=== PATIENT | male | born 1935 | race Caucasian/White ===

== ENCOUNTER 2017-03-22 13:20 | Emergency (ER) | payer MEDICARE | END 2017-03-22 15:00 | disposition home or self-care (01) | LOC: ERS 13:20 | DX: J01.90 Acute sinusitis, unspecified (principal); J30.9 Allergic rhinitis, unspecified; I10 Essential (primary) hypertension; D64.9 Anemia, unspecified; K21.9 Gastro-esophageal reflux disease without esophagitis; Z79.899 Other long term (current) drug therapy | CPT/HCPCS: 99283 ==

== ENCOUNTER 2017-05-01 01:02 | Emergency (ER) | payer MEDICARE ==
[2017-05-01 01:51] LABS: Mean Corpuscular HGB CONC 31.9 g/dL (32.0-36.0); Mean Corpuscular Hemoglobin 28.8 pg (27.0-31.0); Mean Corpuscular Volume 90.2 fl (80.0-94.0); Mean Platelet Volume 6.2 fL (7.4-10.4); Platelet Count 159 thou/uL (130-400); RBC Distribution Width 17.9 % (11.5-14.5); Red Blood Cell (RBC) Count 4.85 mill/uL (4.70-6.10); White Blood Cell (WBC) Count 5.7 thou/uL (4.8-10.8)
[2017-05-01 01:54] LABS: Prothrombin Time 13.2 SEC (12.0-14.7)
[2017-05-01 01:55] LABS: PTT 30.1 SEC (22.9-36.1)
[2017-05-01 02:05] LABS: #Eosinphils 0.1 thou/uL (0.0-0.7); #Lymphocytes 0.8 thou/uL (1.20-3.40); #Monocytes 0.5 thou/uL (0.11-0.59); #Neutrophils 4.3 thou/uL (1.40-6.50); %Basophils 0.7 % (0.0-1.0); %Eosinophils 2.6 % (0.0-10.0); %Lymphocytes 13.7 % (21.0-51.0); %Monocytes 8.4 % (0.0-10.0); %Neutrophils 74.7 % (42.0-75.0)
[2017-05-01 02:09] LABS: ALT (SGPT) 13 U/L (8-55); AST (SGOT) 16 U/L (5-34); Albumin 3.5 g/dL (3.4-4.8); Alkaline Phosphatase 77 U/L (40-150); Anion Gap 9 mmol/L (10-20); BUN (Urea Nitrogen) 28 mg/dL (8.4-25.7); Bilirubin, Total 0.4 mg/dL (0.2-1.2); CK (CPK) 82 U/L (30-200); Calc. Creatinine Clearance 0 mL/min (70-130); Calcium 9.3 mg/dL (7.8-10.44); Carbon Dioxide 31 mmol/L (23-31); Chloride 106 mmol/L (98-107); Estimated GFR-MDRD 80; Globulin 2.5 g/dL (2.4-3.5); Glucose 109 mg/dL (83-110); Sodium 142 mmol/L (136-145)
[2017-05-01 02:13] LABS: CKMB 3.2 ng/mL (0-6.6)
[2017-05-01 05:21] LABS: Troponin I 0.021 ng/mL (< 0.028)
--- NOTE | 2017-05-01 08:16 | RAD ---
CHEST PA AND LATERAL: HISTORY: An 81-year-old male with chest pain and palpitations. Past medical history of a heart murmur. COMPARISON: 11/01/16. FINDINGS: Heart size is normal. The lungs are clear. No pneumonia, edema, or pleural effusion or other acute process. IMPRESSION: Atherosclerosis of the aorta. No acute intrathoracic disease. POS: [facility]
== END 2017-05-01 05:45 | disposition home or self-care (01) ==
LOC: ERS 01:02
DX: R00.2 Palpitations (principal); I10 Essential (primary) hypertension; K21.9 Gastro-esophageal reflux disease without esophagitis
CPT/HCPCS: 36415; 71046; 80053; 82550; 82553; 83880; 84484; 85025; 85610; 85730; 93005

== ENCOUNTER 2017-07-07 17:35 | Emergency (ER) | payer MEDICARE ==
[2017-07-07 18:15] LABS: #Basophils 0.1 thou/uL (0.0-0.2); #Eosinphils 0.2 thou/uL (0.0-0.7); #Lymphocytes 0.7 thou/uL (1.20-3.40); #Monocytes 0.5 thou/uL (0.11-0.59); #Neutrophils 4.4 thou/uL (1.40-6.50); %Basophils 1.5 % (0.0-1.0); %Eosinophils 3.3 % (0.0-10.0); %Lymphocytes 12.2 % (21.0-51.0); %Monocytes 8.6 % (0.0-10.0); %Neutrophils 74.4 % (42.0-75.0); Hemoglobin 12.1 g/dL (14.0-18.0); Mean Corpuscular HGB CONC 32.6 g/dL (32.0-36.0); Mean Corpuscular Hemoglobin 28.7 pg (27.0-31.0); Mean Corpuscular Volume 88.2 fl (80.0-94.0); Mean Platelet Volume 7.9 fL (7.4-10.4); Platelet Count 177 thou/uL (130-400); RBC Distribution Width 13.3 % (11.5-14.5); Red Blood Cell (RBC) Count 4.21 mill/uL (4.70-6.10); White Blood Cell (WBC) Count 5.9 thou/uL (4.8-10.8)
[2017-07-07 18:21] LABS: Prothrombin Time 12.9 SEC (12.0-14.7)
[2017-07-07 18:30] LABS: Albumin 3.2 g/dL (3.4-4.8); Anion Gap 10 mmol/L (10-20); BUN (Urea Nitrogen) 26 mg/dL (8.4-25.7); Bilirubin, Total 0.4 mg/dL (0.2-1.2); Calc. Creatinine Clearance 0 mL/min (70-130); Calcium 8.7 mg/dL (7.8-10.44); Carbon Dioxide 29 mmol/L (23-31); Chloride 108 mmol/L (98-107); Estimated GFR-MDRD 57; Globulin 2.5 g/dL (2.4-3.5); Glucose 103 mg/dL (83-110); Potassium 3.9 mmol/L (3.5-5.1); Protein, Total 5.7 g/dL (5.8-8.1); Sodium 143 mmol/L (136-145)
[2017-07-07 18:31] LABS: ALT (SGPT) 10 U/L (8-55); AST (SGOT) 16 U/L (5-34); Alkaline Phosphatase 68 U/L (40-150); Magnesium 2.1 mg/dL (1.6-2.6)
[2017-07-07] MEDS ORDERED: Mag-Al Plus 1200 MG/1200 MG/120 MG/30 ML UDCUP ONE (18:33)
[2017-07-07] MEDS ORDERED: Lidocaine Viscous Sol 2% 15 ml UD Cup ONE (18:33)
[2017-07-07 18:34] LABS: CKMB 2.7 ng/mL (0-6.6); Troponin I 0.016 ng/mL (< 0.028)
--- NOTE | 2017-07-07 19:12 | RAD ---
FRONTAL VIEW CHEST: 07/07/17 COMPARISON: 05/01/17 INDICATION: Chest pain, indigestion. FINDINGS: No evidence of consolidation, effusion or pneumothorax. No free air beneath the hemidiaphragms. The c ardiac silhouette is accentuated by portable technique, stable in size. No additional significant interval change. IMPRESSION: No focal consolidation. POS: [facility]
[2017-07-07 20:10] LABS: Bilirubin Negative (Negative); Blood, Urine Negative (Negative); Clarity Clear (Clear); Glucose, Urine (Dipstick) Negative (Negative); Leukocyte Negative (Negative); Nitrite Negative (Negative); Protein, Urine (Dipstick) Negative (Neg-Trace); Specific Gravity, Urine 1.015 (1.005-1.030); Urobilinogen 0.2 mg/dL (0.2-1.0)
--- NOTE | 2017-07-07 21:21 | CT ---
CT OF ABDOMEN AND PELVIS WITH CONTRAST 07/07/17 Reference made to 09/06/16. CLINICAL HISTORY: Abdominal pain, cramping, reflux. FINDINGS: There is granulomatous calcification as well as probable mild volume loss and/or component of mild fi brosis seen at the lung bases. Prior cholecystectomy. No focal hepatic or splenic lesion. There is ag e related parenchymal atrophy of the pancreas. Small hypodensity is seen at the anterior right kidney , grossly stable. There is also stable exophytic density at the lower pole right kidney. No hydrone phrosis of either kidney. Punctate hypodensities of the left kidney are too small to further characte rize, grossly stable. No adrenal mass. Bowel is not reliably assessed without enteric contrast. no pn eumoperitoneum or portal venous gas seen. There is marked enlargement of the prostate gland with inte rnal calcification with transverse diameter of 6 cm. This does abut the urinary bladder base . Scatte red osseous degenerative changes are present. There is stable patchy sclerosis of the proximal right femur. Punctate sclerosis at the left pubic body also stable. IMPRESSION: 1. Limited evaluation of the bowel without enteric contrast. 2. Enlarged prostate gland abutting the urinary bladder base. Correlate with physical exam and P SA values to exclude underlying malignancy. 3. Prior cholecystectomy. POS: [facility]
== END 2017-07-07 21:05 | disposition home or self-care (01) ==
LOC: SCSER 17:35
DX: R10.13 Epigastric pain (principal); I10 Essential (primary) hypertension; K21.9 Gastro-esophageal reflux disease without esophagitis; D64.9 Anemia, unspecified; M48.00 Spinal stenosis, site unspecified; Z79.899 Other long term (current) drug therapy
CPT/HCPCS: 36415; 71045; 74177; 80053; 81003; 82553; 83605; 83690; 83735; 84484; 85025; 85610; 93005

== ENCOUNTER 2017-08-09 20:14 | Emergency (ER) | payer MEDICARE ==
[2017-08-09] MEDS ORDERED: methylPREDNISolone Acetate 40 mg/ml Vial ONE ×2 (20:51→20:52)
== END 2017-08-09 21:23 | disposition home or self-care (01) ==
LOC: SCSER 20:14
DX: J32.9 Chronic sinusitis, unspecified (principal); Z85.828 Personal history of other malignant neoplasm of skin; I10 Essential (primary) hypertension; K21.9 Gastro-esophageal reflux disease without esophagitis
CPT/HCPCS: 96372; J1030; J2920

== ENCOUNTER 2017-09-17 06:00 | Emergency (ER) | payer MEDICARE ==
[2017-09-17 06:29] LABS: #Eosinphils 0.1 thou/uL (0.0-0.7); #Lymphocytes 0.6 thou/uL (1.20-3.40); #Monocytes 0.4 thou/uL (0.11-0.59); #Neutrophils 3.1 thou/uL (1.40-6.50); %Basophils 0.9 % (0.0-1.0); %Eosinophils 2.5 % (0.0-10.0); %Lymphocytes 14.9 % (21.0-51.0); %Monocytes 9.2 % (0.0-10.0); %Neutrophils 72.5 % (42.0-75.0); Hemoglobin 12.2 g/dL (14.0-18.0); Mean Corpuscular HGB CONC 31.4 g/dL (32.0-36.0); Mean Corpuscular Hemoglobin 27.7 pg (27.0-31.0); Mean Corpuscular Volume 88.2 fL (78.0-98.0); Mean Platelet Volume 7.7 fL (7.4-10.4); Platelet Count 174 thou/uL (130-400); RBC Distribution Width 12.5 % (11.5-14.5); Red Blood Cell (RBC) Count 4.42 mill/uL (4.70-6.10); White Blood Cell (WBC) Count 4.3 thou/uL (4.8-10.8)
[2017-09-17 06:52] LABS: ALT (SGPT) 10 U/L (8-55); AST (SGOT) 16 U/L (5-34); Albumin 3.4 g/dL (3.4-4.8); Alkaline Phosphatase 79 U/L (40-150); Anion Gap 11 mmol/L (10-20); BUN (Urea Nitrogen) 25 mg/dL (8.4-25.7); Bilirubin, Total 0.4 mg/dL (0.2-1.2); Calc. Creatinine Clearance 0 mL/min (70-130); Calcium 8.9 mg/dL (7.8-10.44); Carbon Dioxide 28 mmol/L (23-31); Chloride 107 mmol/L (98-107); Estimated GFR-MDRD 67; Globulin 2.7 g/dL (2.4-3.5); Glucose 104 mg/dL (83-110); Potassium 3.9 mmol/L (3.5-5.1); Protein, Total 6.1 g/dL (5.8-8.1); Sodium 142 mmol/L (136-145)
[2017-09-17 07:07] LABS: CKMB 2.4 ng/mL (0-6.6); Troponin I 0.012 ng/mL (< 0.028)
--- NOTE | 2017-09-17 07:47 | RAD ---
TWO VIEWS OF THE CHEST: COMPARISON: 05/01/17. HISTORY: Shortness of breath and leg edema. FINDINGS: Two views of the chest show normal sized cardiomediastinal silhouette. There is no evidence of consol idation, mass, or pleural effusion. The bones are unremarkable. IMPRESSION: No evidence of acute cardiopulmonary disease. POS: [facility]
[2017-09-17] MEDS ORDERED: Albuterol Sulfate 2.5 mg/3 ml Neb ONE (08:15)
[2017-09-17] MEDS ORDERED: Furosemide 20 MG/2 ML VIAL ONE ×2 (08:43→10:13)
--- NOTE | 2017-09-17 11:24 | CT ---
CT PULONARY ANGIOGRAM WITH IV CONTRAST AND 3D POSTPROCESSING: HISTORY: Cough, leg swelling, difficulty taking a deep breath. FINDINGS: Opacification of the thoracic aorta is better than that of the pulmonary arterial vasculature which d [facility] attention values of 143 Hounsfield units. No filling defects are seen in the central pul monary arteries. Peripheral pulmonary arteries cannot be satisfactorily evaluated on this study and, thus, peripheral pulmonary embolism cannot be excluded on this exam. There are vascular calcificati ons without evidence of aneurysmal dilatation of the thoracic aorta. No evidence of intimal flap is seen to suggest dissection. No pleural or pericardial effusions are identified. There is scarring i n the lung apices. There is a stable 4 mm parenchymal nodule in the right upper lobe since 06/26/14. There are calcified granulomas noted in the right lung base. There are degenerative changes in the spine. 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 Upper abdominal tomog sia demonstrate changes of cholecystectomy. IMPRESSION: No CT evidence of central pulmonary embolism. POS: [facility]
== END 2017-09-17 10:22 ==
LOC: ERS 06:00
DX: I11.0 Hypertensive heart disease with heart failure (principal); I50.9 Heart failure, unspecified; K21.9 Gastro-esophageal reflux disease without esophagitis; D64.9 Anemia, unspecified; M48.00 Spinal stenosis, site unspecified; Z79.899 Other long term (current) drug therapy
CPT/HCPCS: 36415; 71046; 71275; 80053; 82553; 83880; 84484; 85025; 93005; 94640; 96374; 96376; J1940; J7611

== ENCOUNTER 2017-10-06 22:51 | Emergency (ER) | payer MEDICARE ==
[2017-10-06] MEDS ORDERED: Lidocaine Viscous Sol 2% 15 ml UD Cup ONE (23:30)
[2017-10-06] MEDS ORDERED: Mag-Al Plus 1200 MG/1200 MG/120 MG/30 ML UDCUP ONE (23:30)
== END 2017-10-06 23:45 | disposition home or self-care (01) ==
LOC: SCSER 22:51
DX: K30 Functional dyspepsia (principal); I10 Essential (primary) hypertension; K21.9 Gastro-esophageal reflux disease without esophagitis; D64.9 Anemia, unspecified; H40.9 Unspecified glaucoma; Z79.899 Other long term (current) drug therapy
CPT/HCPCS: 99283

== ENCOUNTER 2017-10-23 19:25 | Emergency (ER) | payer MEDICARE ==
[2017-10-23] MEDS ORDERED: Lidocaine Viscous Sol 2% 15 ml UD Cup ONE (19:43)
[2017-10-23] MEDS ORDERED: Furosemide 20 MG/2 ML VIAL ONE (19:43)
[2017-10-23] MEDS ORDERED: Nitroglycerin 2% Ointment 1 INCH/1 GM Packet ONE (19:43)
[2017-10-23] MEDS ORDERED: Mag-Al Plus 1200 MG/1200 MG/120 MG/30 ML UDCUP ONE (19:43)
[2017-10-23 20:09] LABS: #Basophils 0.1 thou/uL (0.0-0.2); #Eosinphils 0.2 thou/uL (0.0-0.7); #Lymphocytes 0.8 thou/uL (1.20-3.40); #Monocytes 0.5 thou/uL (0.11-0.59); #Neutrophils 4.5 thou/uL (1.40-6.50); %Basophils 1.2 % (0.0-1.0); %Eosinophils 2.5 % (0.0-10.0); %Lymphocytes 13.5 % (21.0-51.0); %Monocytes 8.6 % (0.0-10.0); %Neutrophils 74.1 % (42.0-75.0); ALT (SGPT) 10 U/L (8-55); AST (SGOT) 16 U/L (5-34); Albumin 3.5 g/dL (3.4-4.8); Alkaline Phosphatase 75 U/L (40-150); Anion Gap 11 mmol/L (10-20); BUN (Urea Nitrogen) 27 mg/dL (8.4-25.7); Bilirubin, Total 0.5 mg/dL (0.2-1.2); Calc. Creatinine Clearance 0 mL/min (70-130); Carbon Dioxide 28 mmol/L (23-31); Chloride 108 mmol/L (98-107); Estimated GFR-MDRD 54; Globulin 2.5 g/dL (2.4-3.5); Glucose 99 mg/dL (83-110); Hemoglobin 11.7 g/dL (14.0-18.0); Mean Corpuscular HGB CONC 33.1 g/dL (32.0-36.0); Mean Corpuscular Hemoglobin 26.8 pg (27.0-31.0); Mean Corpuscular Volume 80.7 fL (78.0-98.0); Mean Platelet Volume 7.1 fL (7.4-10.4); Platelet Count 172 thou/uL (130-400); RBC Distribution Width 12.9 % (11.5-14.5); Red Blood Cell (RBC) Count 4.36 mill/uL (4.70-6.10); Sodium 143 mmol/L (136-145); White Blood Cell (WBC) Count 6.1 thou/uL (4.8-10.8)
[2017-10-23 20:10] LABS: Troponin I 0.022 ng/mL (< 0.028)
--- NOTE | 2017-10-23 20:14 | RAD ---
CHEST TWO VIEWS: 10/23/17 HISTORY: Shortness of breath, edema in lower extremities. COMPARISON: 09/17/17 exam. Heart size and mediastinum within normal limits. The lungs are clear of infiltrates. No signs of fail ure. IMPRESSION: No active intrathoracic disease. POS: [facility]
== END 2017-10-23 20:25 | disposition home or self-care (01) ==
LOC: SCSER 19:25
DX: I11.0 Hypertensive heart disease with heart failure (principal); I50.9 Heart failure, unspecified; K21.9 Gastro-esophageal reflux disease without esophagitis; K30 Functional dyspepsia; D64.9 Anemia, unspecified; Z79.899 Other long term (current) drug therapy
CPT/HCPCS: 71046; 80053; 83880; 84484; 85025; 93005; 96374; J1940

== ENCOUNTER 2018-07-17 15:46 | Emergency (ER) | payer MEDICARE ==
[2018-07-17 16:34] LABS: Hemoglobin 10.2 g/dL (14.0-18.0); Mean Corpuscular Hemoglobin 22.1 pg (27.0-31.0); Mean Corpuscular Volume 76.1 fL (78.0-98.0); Mean Platelet Volume 7.1 fL (7.4-10.4); Platelet Count 196 thou/uL (130-400); White Blood Cell (WBC) Count 5.7 thou/uL (4.8-10.8)
--- NOTE | 2018-07-17 16:38 | RAD ---
AP VIEW CHEST: 07/17/18 HISTORY: Chest pain. AP view chest is obtained on 07/17/18. Comparison made to a previous exam from 12/01/17. AP view chest demonstrates the lungs to be well aerated. No evidence of active intrathoracic disease seen. No evidence of effusions, pneumonia or pneumothorax seen. IMPRESSION: Unremarkable AP view chest. POS: [facility]
[2018-07-17 16:43] LABS: #Basophils 0.1 thou/uL (0.0-0.2); #Eosinphils 0.1 thou/uL (0.0-0.7); #Lymphocytes 0.8 thou/uL (1.20-3.40); #Monocytes 0.5 thou/uL (0.11-0.59); #Neutrophils 4.2 thou/uL (1.40-6.50); %Basophils 1.4 % (0.0-1.0); %Eosinophils 1.8 % (0.0-10.0); %Lymphocytes 13.9 % (21.0-51.0); %Monocytes 9.5 % (0.0-10.0); %Neutrophils 73.4 % (42.0-75.0); Anisocytosis SLIGHT = 6-15 cells (100X) (0-5/hpf); Hypochromia SLIGHT = 6-15 cells (100X) (0-5/hpf); MDiff Complete? YES; Microcytosis SLIGHT = 6-15 cells (100X) (0-5/hpf); Ovalocytes SLIGHT = 2-5 cells (100X) (0-1/hpf); Platelet Morphology Comment Appears Adequate; Polychromasia SLIGHT = 2-3 cells (100X) (0-2/hpf)
[2018-07-17 16:49] LABS: ALT (SGPT) 9 U/L (8-55); AST (SGOT) 15 U/L (5-34); Albumin 3.4 g/dL (3.4-4.8); Alkaline Phosphatase 80 U/L (40-150); Anion Gap 11 mmol/L (10-20); BUN (Urea Nitrogen) 17 mg/dL (8.4-25.7); Bilirubin, Total 0.2 mg/dL (0.2-1.2); CK (CPK) 87 U/L (30-200); Calc. Creatinine Clearance 0 mL/min (70-130); Calcium 8.7 mg/dL (7.8-10.44); Carbon Dioxide 25 mmol/L (23-31); Chloride 110 mmol/L (98-107); Estimated GFR-MDRD 66; Globulin 2.5 g/dL (2.4-3.5); Glucose 112 mg/dL (83-110); Lipase 41 U/L (8-78); Potassium 3.9 mmol/L (3.5-5.1); Protein, Total 5.9 g/dL (5.8-8.1); Sodium 142 mmol/L (136-145)
[2018-07-17] MEDS ORDERED: Aspirin Chewable 81 MG TAB ONE (17:39)
[2018-07-17] MEDS ORDERED: Lidocaine Viscous Sol 2% 15 ml UD Cup ONE (17:39)
[2018-07-17] MEDS ORDERED: Mag-Al Plus 1200 MG/1200 MG/120 MG/30 ML UDCUP ONE (17:39)
== END 2018-07-17 17:34 | disposition left against medical advice (07) ==
LOC: SCSER 15:46
DX: R07.9 Chest pain, unspecified (principal); I10 Essential (primary) hypertension; K21.9 Gastro-esophageal reflux disease without esophagitis; D64.9 Anemia, unspecified
CPT/HCPCS: 71045; 80053; 82550; 83690; 84484; 85025; 93005

== ENCOUNTER 2018-12-19 21:19 | Observation (INO) | payer MEDICARE ==
[~2018-12-19 21:19] MED LIST: ISOVUE-370 76%-LOCM 1 ML ONE
[2018-12-19 21:50] LABS: #Eosinphils 0.1 thou/uL (0.0-0.7); #Lymphocytes 0.9 thou/uL (1.20-3.40); #Monocytes 0.6 thou/uL (0.11-0.59); #Neutrophils 4.2 thou/uL (1.40-6.50); %Basophils 0.6 % (0.0-1.0); %Lymphocytes 15.7 % (21.0-51.0); %Monocytes 10.1 % (0.0-10.0); %Neutrophils 71.6 % (42.0-75.0); Hemoglobin 11.4 g/dL (14.0-18.0); Mean Corpuscular Hemoglobin 23.3 pg (27.0-31.0); Mean Corpuscular Volume 75.1 fL (78.0-98.0); Mean Platelet Volume 9.4 fL (7.4-10.4); Platelet Count 204 thou/uL (130-400); RBC Distribution Width 15.8 % (11.5-14.5); White Blood Cell (WBC) Count 5.8 thou/uL (4.8-10.8)
[2018-12-19] MEDS ORDERED: Ondansetron PF 4 MG/2 ML Vial ONE ×2 (22:00→22:59)
[2018-12-19 22:12] LABS: ALT (SGPT) 11 U/L (8-55); AST (SGOT) 18 U/L (5-34); Albumin 3.8 g/dL (3.4-4.8); Alkaline Phosphatase 97 U/L (40-150); Anion Gap 7 mmol/L (10-20); BUN (Urea Nitrogen) 17 mg/dL (8.4-25.7); Bilirubin, Total 0.3 mg/dL (0.2-1.2); CK (CPK) 106 U/L (30-200); Calc. Creatinine Clearance 0 mL/min (70-130); Calcium 9.2 mg/dL (7.8-10.44); Carbon Dioxide 30 mmol/L (23-31); Chloride 106 mmol/L (98-107); Estimated GFR-MDRD 60; Glucose 103 mg/dL (83-110); Lipase 26 U/L (8-78); Potassium 3.9 mmol/L (3.5-5.1); Protein, Total 6.8 g/dL (5.8-8.1); Sodium 139 mmol/L (136-145)
[2018-12-19 22:14] LABS: Bilirubin Negative (Negative); Blood, Urine Negative (Negative); Glucose, Urine (Dipstick) Negative (Negative); Leukocyte Trace (Negative); Nitrite Negative (Negative); Protein, Urine (Dipstick) Negative (Neg-Trace); Urobilinogen 0.2 mg/dL (Less than 2)
[2018-12-19 22:19] LABS: Clarity Clear (Clear)
[2018-12-19 22:20] LABS: RBC/HPF 0-3 HPF (0-3); Squamous Epithelial None Seen HPF (0-3)
[2018-12-19 22:26] LABS: Bacteria/HPF None Seen HPF (None Seen)
--- NOTE | 2018-12-19 22:34 | CT ---
Exam: CT angiogram of the thoracic aorta CT angiogram of the abdominal aorta COMPARISON: CT scan of the chest 09/17/2017 HISTORY: Abdominal pain. Hypertension. TECHNIQUE: CT angiogram of the thoracic and abdominal aorta performed in the axial plane. Three-dimen sional reformatted images are submitted for dictation FINDINGS: Chest CT: Visualized axilla and lower neck are unremarkable. Mediastinum: Nonspecific, nonenlarged mediastinal lymph nodes. No mass. HEART: Upper normal heart size. No significant pericardial fluid. There are coronary calcifications. Central pulmonary arteries have appropriate enhancement without filling defect. Trachea and central bronchi are patent Pleural spaces: No pleural effusion LUNGS: Calcified granuloma in the right lower lobe. No masses or consolidation. Pneumothorax: None. Abdomen CT: Appropriate arterial phase enhancement of the liver, spleen, pancreas and adrenal glands. There is at rophy of the pancreas. Gallbladder surgically absent. Portal vein is patent. Symmetric enhancement of the kidneys. Bilaterally no obstructive uropathy. Nonobstructing calculus in the right renal pelvis measures 0.4 cm. Subcentimeter hypodensities in the left or right renal cortex too small to characterize. There is also a exophytic hyperdensity in the mid left renal cortex measuring 0.8 cm. Limited and incomplete evaluation. Limited evaluation of the alimentary canal. Multiple prominent fluid-filled small bowel loops are not ed. An ileus or partial obstructive process cannot be excluded. Osseous structures: No lytic or blastic lesions CT ANGIOGRAM: The root of the thoracic aorta is unremarkable. The ascending thoracic aorta, aortic arch, descending thoracic aorta, abdominal aorta and aortic bifu rcation have appropriate enhancement and luminal diameter. Grossly, the visualized great vessels of the neck are patent. The celiac artery origin, inferior mesenteric artery origin, bilateral renal arteries, inferior mesen teric artery and visualized iliac arteries are patent. Appropriate enhancement and luminal diameter. No evidence of aneurysm or dissection regards the aorta IMPRESSION: 1. No evidence of aneurysm or dissection with regards to the thoracic or abdominal aorta. 2. Slightly prominent fluid-filled small bowel loops. The possibility of early/partial obstructive pr ocess versus an ileus cannot be excluded. Evaluate clinically. 3. Indeterminate renal lesions as described above. The possibility of an 8mm enhancing focus in the l eft renal cortex cannot be excluded. Transcribed Date/Time: 12/19/2018 11:04 PM
[2018-12-19] MEDS ORDERED: Morphine 2 MG/ML SYRINGE ONE ×2 (22:47)
[2018-12-20] MEDS ORDERED: Ondansetron ODT 4 MG TAB PO PRN (02:17)
[2018-12-20] MEDS ORDERED: Acetaminophen 650 MG Suppository PR PRN (02:17)
[2018-12-20] MEDS ORDERED: Ondansetron PF 4 MG/2 ML Vial IVP PRN (02:17)
[2018-12-20] MEDS ORDERED: Acetaminophen 325 MG TAB PO PRN (02:17)
[2018-12-20] MEDS ORDERED: Ketorolac Tromethamine 30 MG/ML VIAL IVP PRN (02:19)
[2018-12-20] MEDS ORDERED: Sodium Chloride 0.9% 1,000 ML IV SCH (02:30)
[2018-12-20 03:50] LABS: #Eosinphils 0.1 thou/uL (0.0-0.7); #Lymphocytes 0.9 thou/uL (1.20-3.40); #Monocytes 0.6 thou/uL (0.11-0.59); #Neutrophils 5.2 thou/uL (1.40-6.50); %Basophils 0.5 % (0.0-1.0); %Eosinophils 1.2 % (0.0-10.0); %Lymphocytes 12.6 % (21.0-51.0); %Neutrophils 76.6 % (42.0-75.0); Hemoglobin 10.5 g/dL (14.0-18.0); Mean Corpuscular HGB CONC 31.3 g/dL (32.0-36.0); Mean Corpuscular Hemoglobin 23.6 pg (27.0-31.0); Mean Corpuscular Volume 75.5 fL (78.0-98.0); Mean Platelet Volume 9.8 fL (7.4-10.4); Platelet Count 186 thou/uL (130-400); RBC Distribution Width 15.6 % (11.5-14.5); Red Blood Cell (RBC) Count 4.45 mill/uL (4.70-6.10); White Blood Cell (WBC) Count 6.8 thou/uL (4.8-10.8)
[2018-12-20 04:07] LABS: Anion Gap 8 mmol/L (10-20); BUN (Urea Nitrogen) 15 mg/dL (8.4-25.7); Calc. Creatinine Clearance 0 mL/min (70-130); Calcium 8.6 mg/dL (7.8-10.44); Carbon Dioxide 28 mmol/L (23-31); Chloride 106 mmol/L (98-107); Estimated GFR-MDRD 69; Glucose 107 mg/dL (83-110); Potassium 4.1 mmol/L (3.5-5.1); Sodium 138 mmol/L (136-145)
[2018-12-20] MEDS ORDERED: Enoxaparin Sodium 40 MG/0.4 ML SYRINGE SC SCH (09:00)
[2018-12-20] MEDS ORDERED: Enoxaparin Sodium 40 MG/0.4 ML SYRINGE ONE (09:17)
--- NOTE | 2018-12-20 10:19 | RAD ---
Exam: Single view of the chest and 2 views of the abdomen HISTORY: Abdominal pain COMPARISON: 08/29/2016 FINDINGS: 2 views of the abdomen and a single view the chest shows a nonspecific, nonobstructive rianna l gas pattern. Air is seen to the level of the rectum. No free air or air-fluid levels are seen and upright examination. The cardiomediastinal silhouette is normal in size. There is no evidence of consolidation, mass, or p leural effusion. IMPRESSION: Nonobstructive bowel gas pattern
[2018-12-20] MEDS ORDERED: Bisacodyl 10 MG SUPP PR PRN (11:26)
[2018-12-20] MEDS ORDERED: Senokot S 8.6-50 MG TAB PO PRN (11:26)
[2018-12-20] MEDS ORDERED: Guaifenesin DM 100-10/5 ML UDCUP PO PRN (11:26)
[2018-12-20] MEDS ORDERED: Calcium Carbonate 500 MG ChewTAB PO PRN (11:26)
[2018-12-20] MEDS ORDERED: hydrALAZINE 25 MG TAB PO SCH (15:00)
--- NOTE | 2018-12-20 15:03 | HP ---
REASON FOR ADMISSION: Possible partial small bowel obstruction. HISTORY OF PRESENTING ILLNESS: The patient gives history of having abdominal pain in the epigastric area, which started around 7:00 p.m. yesterday. This pain was colicky in nature and was coming every 5 to 10 minutes and lasting for a minute or so. He in fact had 3 bowel movements which were normal as far as he knows. He normally goes two times a day. No nausea or vomiting. As the abdominal colic/ pain got worse, he made it to the emergency room. Currently, the abdominal pain is fully resolved with administration of morphine in the ER. He has had a CT dissection protocol done, which showed findings suggestive of possible partial small bowel obstruction. He has no prior history of small bowel obstruction. He has had prior history of cholecystectomy, but no other abdominal surgeries. He normally ambulates inside the house. PAST MEDICAL AND SURGICAL HISTORY: Chronic anemia for which he has received iron transfusions in the past, the last one was more than 2 years ago; gastroesophageal reflux disease; hypertension, benign prostatic hyperplasia, history of cholecystectomy, cataract surgeries, three colonoscopies; two EGDs, the last one was [address] Martinez; history of spinal stenosis; glaucoma. CURRENT MEDICATIONS: The patient takes lisinopril 40 mg p.o. every morning, Dexilant 60 mg p.o. daily, hydralazine 50 mg twice daily, Imdur extended release 60 mg p.o. daily, Norvasc 10 mg daily, and Flomax 0.8 mg p.o. daily. ALLERGIES: TO BENTYL, CODEINE, AND HYDROCODONE. PERSONAL HISTORY: Does not abuse alcohol or drugs. No history of smoking. FAMILY HISTORY: Both parents are . Mother at the age of 85. Father at the age of 87, both of natural of natural causes. CODE STATUS: Do not attempt to resuscitate. This was discussed with the patient at bedside. Power of dog boarder is daughter, Ms. Dinorah Mendoza or Vanessa Carrillo. REVIEW OF SYSTEMS: CONSTITUTIONAL: Negative for weight loss or gain, ability to conduct usual activities. SKIN: Negative for rash, itching. EYES: Negative for double vision, pain. ENT/MOUTH: Negative for nose bleeding, neck stiffness, pain, tenderness. CARDIOVASCULAR: Negative for palpitations, dyspnea on exertion, orthopnea. RESPIRATORY: Negative for shortness of breath, wheezing, cough, hemoptysis, fever or night sweats. GASTROINTESTINAL: Negative for poor appetite, abdominal pain, heartburn, nausea , vomiting, constipation, or diarrhea. GENITOURINARY: Negative for urgency, frequency, dysuria, nocturia. MUSCULOSKELETAL: Negative for pain, swelling. NEUROLOGIC/PSYCHIATRIC: Negative for anxiety, depression. ALLERGY/IMMUNOLOGIC: Negative for skin rash, bleeding tendency. PHYSICAL EXAMINATION: GENERAL: The patient is an 83-year-old male, who is currently not in any acute distress. VITAL SIGNS: Blood pressure 182/78, pulse 64 per minute, respiratory rate 16 per minute, temperature 99 degrees Fahrenheit, and saturating 98% on room air. NECK: Supple. No elevated JVD. HEENT: Eyes; extraocular muscles intact. Pupils are reacting to light. Oral cavity, mucous membranes are dry. No exudates or congestion. CARDIOVASCULAR SYSTEM: S1 and S2, heard. Regular rhythm. RESPIRATORY: Air entry 1+ bilateral. No rales or rhonchi. ABDOMEN: Soft. Bowel sounds heard. There is mild tenderness in the epigastric area. Otherwise, no guarding or rigidity. EXTREMITIES: There is 1+ peripheral edema. No calf tenderness. VASCULAR: Peripheral pulses 1+ bilateral, no ischemic ulcerations or gangrene. CENTRAL NERVOUS SYSTEM: No gross focal deficits noted. The patient is alert, awake, and oriented well. PSYCHIATRIC: The patient's mood is euthymic. No hallucinations or delusions. LABORATORY DATA: A CT dissection protocol done on arrival showed no aneurysm or dissection of thoracic or abdominal aorta. There is slightly prominent fluid- filled small bowel loops. Possibility of early/partial small bowel obstruction versus ileus could not be excluded. A two-view abdominal x-ray done showed nonobstructive bowel gas pattern. White count of 6.8, H and H 10 and 33, platelet count 186, MCV 75 with 76% neutrophils. Electrolytes are stable. BUN 15, creatinine 1.0, serum glucose 107. Liver enzymes are within normal limits. Troponin I is 0.01. CK 106. Albumin 3.8. Lipase is 26. CLINICAL IMPRESSION AND PLAN: The patient will be admitted to medical floor for abdominal pain with findings suspicious for partial small bowel obstruction. We will place him on clear liquid diet. He will be ambulated with walking program. Toradol p.r.n. for pain as the patient is allergic to codeine and hydrocodone. We will continue his aspirin, hydralazine, Imdur, latanoprost, and Flomax as before. Consultation with Dr. Byrd will be obtained for General Surgery. Likely, the patient will be discharged in the morning if he were to have a bowel movement and pass flatus. His bilirubin appears benign at present. Addendum: Patient was evaluated by and is cleared for discharge. Please note this will be a same day observation admit and discharge summary. Job ID: [id number] MTDD
--- NOTE | 2018-12-20 16:16 | CON ---
DATE OF CONSULTATION: HISTORY OF PRESENT ILLNESS: Best Figueroa is an 83-year-old male patient, mentally astute and ambulatory, experiencing abdominal pain yesterday after a meal. He has been doing well in the past without such problems. He presented to the emergency room, and a CT angio dissection protocol revealed some mildly dilated small bowel loops suggesting possible obstruction. He was hospitalized overnight, and today, by the time I am seeing him at 1 p.m., he has not experienced any nausea or vomiting. He has passed flatus. NG tube has not been placed. The patient is hungry and does not have the pain anymore. I did order a 3-view abdomen, and bowel gas pattern is nonspecific and nonobstructive. The patient reports that he has had past abdominal complaints years ago, and has seen Dr. Robert Martinez. He has had 3 upper and lower endoscopies. The last colonoscopy was 2 years ago. At that time, he even had a camera endoscopy that was normal for abdominal pain, which has since resolved and not recurred until this event. He has had a past laparoscopic cholecystectomy, but no other abdominal operations. ALLERGIES: HE REPORTS ALLERGIES TO CODEINE AND HYDROCODONE, BOTH OF WHICH CAUSED GI UPSET, BUT NO ALLERGIC REACTIONS. HE STATES THAT BENTYL CAUSES ACUTE KIDNEY PROBLEMS. SOCIAL HISTORY: Tobacco, none. Alcohol, none. MEDICATIONS: 1. Hydralazine. 2. Flomax. 3. Protonix. 4. Lisinopril. 5. Eyedrops. 6. Isosorbide. 7. Furosemide. 8. Aspirin. PAST SURGICAL HISTORY: Laparoscopic cholecystectomy, cataract surgery, colonoscopy 2 to 3 years ago as described above. Upper endoscopy 2 to 3 years ago as described above by Dr. Martinez. Camera endoscopy as described above. PAST MEDICAL HISTORY: Hypertension, glaucoma. He reports having a heart murmur, followed by Dr. Spencer. Recently, he had an echocardiogram. He was told it was normal. He does not recall ever having had a stress test cardiac and he is asymptomatic from a cardiac standpoint. PHYSICAL EXAMINATION: GENERAL: The patient is sitting up in bed, in no discomfort, in no distress. He is alert and oriented x3. VITAL SIGNS: Blood pressure 140/72, respiratory rate 18, heart rate 72. HEAD, EYES, EARS, NOSE, AND THROAT: Unremarkable. LUNGS: Clear to auscultation. CARDIAC: Regular rate and rhythm. No murmur or gallop. ABDOMEN: Soft, nontender, non-tympanitic. No hernias. EXTREMITIES: No ankle edema. NEUROLOGICAL: Intact. LABORATORY DATA: White count 6, hemoglobin 10.5. Basic metabolic profile normal. ASSESSMENT AND PLAN: Abdominal pain of uncertain etiology. CAT scan dissection protocol suggested possible early bowel obstruction, but his symptoms have resolved. At this point, he is feeling well. I would recommend a regular diet, saline lock, and discharge home later today without further intervention. I do not think he needs a small bowel follow through. Hopefully, he can be discharged home from the emergency room later this afternoon. Job ID: [id number]
[2018-12-20] MEDS ORDERED: Famotidine/PF 20 mg/2ml Vial SLOW IVP SCH (21:00)
[2018-12-20] MEDS ORDERED: Latanoprost 0.005% Ophth Soln 2.5 ml Bottle EA EYE SCH (21:00)
[2018-12-20] MEDS ORDERED: Tamsulosin HCl 0.4 MG CAP PO SCH (21:00)
[2018-12-21] MEDS ORDERED: Aspirin 81 mg Enteric Coated Tablet PO SCH (09:00)
== END 2018-12-20 15:19 | disposition home or self-care (01) ==
LOC: ERS 21:19 → INTOOBSV 23:29 → ERHOLD 23:29
PROVIDERS: ADMIT Hospitalist; ATTEND Hospitalist
DX: R10.13 Epigastric pain (principal); D64.9 Anemia, unspecified; K21.9 Gastro-esophageal reflux disease without esophagitis; I10 Essential (primary) hypertension; N40.0 Benign prostatic hyperplasia without lower urinary tract symptoms; Z66 Do not resuscitate; Z79.82 Long term (current) use of aspirin; Z79.899 Other long term (current) drug therapy; Z88.5 Allergy status to narcotic agent; Z88.8 Allergy status to other drugs, medicaments and biological substances
CPT/HCPCS: 71275; 72191; 74022; 74175; 80048; 80053; 82550; 83605; 83690; 83735; 84484; 85025 ×2; 93005; 96361; 96374; 96375; 96376; 99285; G0378; 36415; 81003; 81015; J1650; J2270; J2405; Q9966

== ENCOUNTER 2019-01-01 17:35 | Emergency (ER) | payer MEDICARE ==
[2019-01-01 18:25] LABS: Bacteria/HPF None Seen HPF (None Seen); Bilirubin Negative (Negative); Blood, Urine Negative (Negative); Clarity Clear (Clear); Glucose, Urine (Dipstick) Normal (Negative); Leukocyte 75 Leu/uL (Negative); Nitrite Negative (Negative); Protein, Urine (Dipstick) Negative (Neg-Trace); RBC/HPF 0-3 HPF (0-3); Squamous Epithelial None Seen HPF (0-3); Urobilinogen Normal mg/dL (Less than 2)
== END 2019-01-01 20:25 | disposition home or self-care (01) ==
LOC: ERS 17:35
DX: N39.0 Urinary tract infection, site not specified (principal); I10 Essential (primary) hypertension; K21.9 Gastro-esophageal reflux disease without esophagitis; D64.9 Anemia, unspecified; Z79.899 Other long term (current) drug therapy
CPT/HCPCS: 81003; 81015; 87086; 87804; 99284

== ENCOUNTER 2019-03-21 21:49 | Emergency (ER) | payer MEDICARE ==
[2019-03-21] MEDS ORDERED: hydrOXYzine 25 MG TAB ONE (23:06)
[2019-03-21 23:19] LABS: #Eosinphils 0.2 thou/uL (0.0-0.7); #Lymphocytes 0.9 thou/uL (1.20-3.40); #Monocytes 0.5 thou/uL (0.11-0.59); #Neutrophils 2.8 thou/uL (1.40-6.50); %Basophils 1.1 % (0.0-1.0); %Eosinophils 3.8 % (0.0-10.0); %Lymphocytes 19.4 % (21.0-51.0); %Monocytes 12.4 % (0.0-10.0); %Neutrophils 63.4 % (42.0-75.0); Hemoglobin 10.3 g/dL (14.0-18.0); Mean Corpuscular HGB CONC 31.1 g/dL (32.0-36.0); Mean Corpuscular Hemoglobin 23.4 pg (27.0-31.0); Mean Corpuscular Volume 75.2 fL (78.0-98.0); Mean Platelet Volume 9.1 fL (7.4-10.4); Platelet Count 197 thou/uL (130-400); RBC Distribution Width 14.9 % (11.5-14.5); White Blood Cell (WBC) Count 4.4 thou/uL (4.8-10.8)
[2019-03-21 23:40] LABS: ALT (SGPT) 8 U/L (8-55); AST (SGOT) 14 U/L (5-34); Albumin 3.6 g/dL (3.4-4.8); Alkaline Phosphatase 88 U/L (40-110); Anion Gap 9 mmol/L (10-20); BUN (Urea Nitrogen) 22 mg/dL (8.4-25.7); Bilirubin, Total 0.2 mg/dL (0.2-1.2); Calc. Creatinine Clearance 0 mL/min (70-130); Calcium 8.7 mg/dL (7.8-10.44); Carbon Dioxide 29 mmol/L (23-31); Chloride 109 mmol/L (98-107); Estimated GFR-MDRD 57; Globulin 2.8 g/dL (2.4-3.5); Glucose 103 mg/dL (83-110); Potassium 4.2 mmol/L (3.5-5.1); Protein, Total 6.4 g/dL (5.8-8.1); Sodium 143 mmol/L (136-145)
== END 2019-03-22 00:15 | disposition home or self-care (01) ==
LOC: ERS 21:49
DX: R60.0 Localized edema (principal); L29.9 Pruritus, unspecified; I10 Essential (primary) hypertension; K21.9 Gastro-esophageal reflux disease without esophagitis; D64.9 Anemia, unspecified; Z79.899 Other long term (current) drug therapy
CPT/HCPCS: 36415; 80053; 83880; 85025; 99283

== ENCOUNTER 2019-08-27 22:09 | Emergency (ER) | payer MEDICARE, OTHER ==
[2019-08-27 22:40] LABS: Bacteria/HPF None Seen HPF (None Seen); Bilirubin Negative (Negative); Blood, Urine Negative (Negative); Clarity Clear (Clear); Glucose, Urine (Dipstick) Normal (Negative); Leukocyte 75 Leu/uL (Negative); Nitrite Negative (Negative); Protein, Urine (Dipstick) Negative (Neg-Trace); RBC/HPF 0-3 HPF (0-3); Squamous Epithelial None Seen HPF (0-3); Urobilinogen Normal mg/dL (Less than 2); WBC/HPF 0-3 HPF (0-3)
[2019-08-28 10:12] LABS: SARS-CoV-2 MS2 Positive; SARS-CoV-2 N Gene Positive; SARS-CoV-2 S Gene Positive; SARS-CoV-2 orf1ab Positive
== END 2019-08-28 | disposition home or self-care (01) ==
LOC: ERS 22:09
DX: U07.1 COVID-19 (principal); J02.9 Acute pharyngitis, unspecified; N40.1 Benign prostatic hyperplasia with lower urinary tract symptoms; R35.0 Frequency of micturition; I10 Essential (primary) hypertension; K21.9 Gastro-esophageal reflux disease without esophagitis; D64.9 Anemia, unspecified; Z79.899 Other long term (current) drug therapy
CPT/HCPCS: 87081; 87430; 99284; U0003; 81003; 81015; 87635

== ENCOUNTER 2019-08-31 19:09 | Emergency (ER) | payer MEDICARE, OTHER ==
[2019-08-31] MEDS ORDERED: Lidocaine Viscous Sol 2% 15 ml UD Cup ONE (19:35)
[2019-08-31] MEDS ORDERED: Mag-Al 1200 mg/1200 mg/30 ML UDCUP ONE (19:35)
== END 2019-08-31 19:41 | disposition home or self-care (01) ==
LOC: ERS 19:09
DX: G47.00 Insomnia, unspecified (principal); R14.2 Eructation
CPT/HCPCS: 99283

== ENCOUNTER 2020-01-23 05:39 | Observation (INO) | payer MEDICARE, OTHER ==
[2020-01-23] MEDS ORDERED: Ondansetron PF 4 MG/2 ML Vial ONE (05:47)
[2020-01-23] MEDS ORDERED: Meclizine HCl 25 MG TAB ONE (05:47)
[2020-01-23 06:01] LABS: #Eosinphils 0.1 thou/uL (0.0-0.7); #Lymphocytes 1.4 thou/uL (1.20-3.40); #Monocytes 0.5 thou/uL (0.11-0.59); #Neutrophils 3.8 thou/uL (1.40-6.50); %Basophils 0.8 % (0.0-1.0); %Eosinophils 2.1 % (0.0-10.0); %Monocytes 8.7 % (0.0-10.0); %Neutrophils 64.5 % (42.0-75.0); Hemoglobin 10.2 g/dL (14.0-18.0); Mean Corpuscular HGB CONC 30.9 g/dL (32.0-36.0); Mean Corpuscular Hemoglobin 23.8 pg (27.0-31.0); Mean Corpuscular Volume 76.8 fL (78.0-98.0); Mean Platelet Volume 8.6 fL (7.4-10.4); Platelet Count 213 thou/uL (130-400); RBC Distribution Width 15.1 % (11.5-14.5); Red Blood Cell (RBC) Count 4.29 mill/uL (4.70-6.10); White Blood Cell (WBC) Count 5.8 thou/uL (4.8-10.8)
[2020-01-23] MEDS ORDERED: Diazepam 5 MG TAB ONE (06:03)
[2020-01-23 06:26] LABS: ALT (SGPT) 10 U/L (8-55); AST (SGOT) 17 U/L (5-34); Albumin 3.4 g/dL (3.4-4.8); Alkaline Phosphatase 71 U/L (40-110); Anion Gap 11 mmol/L (10-20); BUN (Urea Nitrogen) 23 mg/dL (8.4-25.7); Bilirubin, Total 0.4 mg/dL (0.2-1.2); Calc. Creatinine Clearance 0 mL/min (70-130); Calcium 8.5 mg/dL (7.8-10.44); Carbon Dioxide 26 mmol/L (23-31); Chloride 109 mmol/L (98-107); Estimated GFR-MDRD 66; Globulin 2.6 g/dL (2.4-3.5); Glucose 135 mg/dL (83-110); Potassium 3.7 mmol/L (3.5-5.1); Sodium 142 mmol/L (136-145)
[2020-01-23 06:36] LABS: Bilirubin Negative (Negative); Blood, Urine Negative (Negative); Clarity Clear (Clear); Glucose, Urine (Dipstick) Normal (Negative); Ketone, Urine Negative (Negative); Leukocyte Negative Leu/uL (Negative); Nitrite Negative (Negative); Protein, Urine (Dipstick) Negative (Neg-Trace); Specific Gravity, Urine 1.016 (1.002-1.036); Urobilinogen Normal mg/dL (Less than 2)
--- NOTE | 2020-01-23 07:18 | CT ---
CT OF THE BRAIN WITHOUT CONTRAST: Date: 01/23/2020 COMPARISON: 07/09/2013. HISTORY: Dizziness and lightheadedness. TECHNIQUE: Multiple contiguous axial images were obtained in a CT of the brain without contrast. FINDINGS: The brain is normal in morphology and attenuation without focal lesions or confluent areas of infarct ion. There is no evidence of hydrocephalus, intracranial hemorrhage, or extra-axial fluid collection. The calvarium and overlying soft tissues are unremarkable. The visualized paranasal sinuses and masto id air cells are well aerated. IMPRESSION: No evidence of acute intracranial abnormality. POS: [facility]
--- NOTE | 2020-01-23 07:23 | CT ---
CTA HEAD AND CTA NECK WITH CONTRAST: Date: 01/23/2020 HISTORY: Nausea and vomiting with dizziness and lightheadedness. TECHNIQUE: 1. Multiple contiguous axial images were obtained in a CTA of the neck with contrast. 3D sagittal an d coronal MIP reformats were performed. 2. Multiple contiguous axial images were obtained in a CTA of the head with contrast. 3D sagittal an d coronal MIP reformats were performed. FINDINGS: CTA NECK: The subclavian arteries are normal in appearance without significant atherosclerotic disease. The com mon carotid arteries have a normal origin from the aortic arch. No significant atherosclerotic diseas e is seen in the common carotid arteries. No significant atherosclerotic disease is seen in the right internal carotid artery. There is mild at herosclerotic disease in the proximal aspect of the left internal carotid artery with less than 10% s tenosis per NASCET criteria. The distal cervical internal carotid arteries are normal in caliber. Both vertebral arteries are patent without significant atherosclerotic disease. No mucosal abnormality is seen in the neck. The lung apices are unremarkable. Degenerative changes ar e seen in the spine. CTA HEAD: There is mild nonfocal atherosclerotic disease in the cavernous portion of both internal carotid guicho drea. The internal carotid arteries bifurcate into normal appearing anterior and middle cerebral guicho drea. There is no evidence of aneurysmal dilatation, focal stenosis, or occlusion in the anterior cir culation. Both vertebral arteries form a normal appearing basilar artery. There is mild intracranial atheroscle rotic disease in the vertebral arteries. There is no evidence of focal stenosis, occlusion, or aneury smal dilatation of the posterior circulation. IMPRESSION: 1. 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 2. No significant intracranial vascular abnormality. POS: [facility]
--- NOTE | 2020-01-23 08:01 | PDOC.HHP ---
Hospitalist HPI - History of Present Illness Dizziness History of Present Illness: Mr. Figueroa is a 84-year-old male with a past medical history of hypertension, iron deficiency anemia, BPH, GERD, spinal stenosis who presents with acute onset of nausea and dizziness. Patient reports that approximately 4:30 AM this morning he awoke from sleep with extreme dizziness, nausea, dry heaving. Patient felt as though the room was spinning around him. He denies any chest pain, shortness of breath, palpitations at that time. He denies any weakness, numbness, paresthesias. Patient reports that his dizziness was worse with movement and changes in position and did not resolve until he received meclizine in the ED. He denies any history of stroke or heart attack. No prior history of vertigo. In emergency room EKG with no ischemic changes, initial troponin 0 0.015. BUN/CR 23/1.07, sodium 142, potassium 3.7. H/H 10.2/32.9, WBC 5.8. CT brain showed no acute abnormalities, CT angio with no major areas of stenosis. Patient received 500 mL of normal saline, 25 mg of meclizine, 5 mg of diazepam, 4 mg of Zofran with significant improvement in his symptoms. Hospitalist ROS - Review of Systems Constitutional: reports: other. denies: fever (Dizziness), chills, sweats, weakness, malaise Eyes: denies: pain, vision change, conjunctivae inflammation, eyelid inflammation, redness, other ENT: denies: ear pain, ear discharge, nose pain, nose discharge, nose congestion, mouth pain, mouth swelling, throat pain, throat swelling, other Respiratory: denies: cough, dry, shortness of breath, hemoptysis, SOB with excertion, pleuritic pain, sputum, wheezing, other Cardiovascular: denies: chest pain, palpitations, orthopnea, paroxysmal noc. dyspnea, edema, light headedness, other Gastrointestinal: reports: nausea. denies: vomiting, abdominal pain, diarrhea, constipation, melena, hematochezia, other Genitourinary: denies: dysuria, frequency, incontinence, hematuria, retention, other Musculoskeletal: denies: neck pain, shoulder pain, arm pain, back pain, hand pain, leg pain, foot pain, other Skin: denies: rash, lesions, doris, bruising, other Neurological: denies: weakness, numbness, incoordination, change in speech, confusion, seizures, other - Medication Medications: Home medications include Lisinopril 40 mg Dexilant 60 mg Hydralazine 25 mg Imdur 60 mg Amlodipine 10 mg Flomax 0.4 mg Patient reports allergy to codeine, hydrocodone, Bentyl Hospitalist History - Past Medical History Source: patient, family Other Medical History: Past medical history includes Hypertension Iron deficiency anemia, requiring iron transfusions BPH GERD Spinal stenosis - Past Surgical History Other Surgical History: Past surgical history includes cholecystectomy - Family History Other Family History: Family history pertinent for stroke in patient's mother at age 87, and [place] in patient's father also in his 80s. - Social History Smoking Status: Never smoker Alcohol: reports: None Drugs: reports: none Living Situation: With Family Activity level: independent ambulation Other Social History: Patient lives at home with his daughter - Exam General Appearance: NAD, awake alert Eye: PERRL, anicteric sclera ENT: normocephalic atraumatic, no oropharyngeal lesions, moist mucosa Neck: supple, symmetric, no JVD, no thyromegaly, no lymphadenopathy, no carotid bruit Heart: RRR, murmur present (Known murmur) Respiratory: CTAB, no wheezes, no rales, no ronchi, normal chest expansion, no tachypnea, normal percussion Gastrointestinal: soft, non-tender, non-distended, normal bowel sounds, no palpable masses, no hepatomegaly, no splenomegaly, no bruit Extremities: no cyanosis, no clubbing, 1+ LE edema Skin: normal turgor, no lesions, no rashes Neurological: cranial nerve grossly intact, normal sensation to touch, no weakness, no focal deficits, no new deficit Musculoskeletal: normal tone, normal strength, no muscle wasting Psychiatric: normal affect, normal behavior, A&O x 3 Hospitalist Results - Labs Result Diagrams: 01/23/20 05:45 01/23/20 05:45 Lab results: WBC 5.8 thou/uL (4.8-10.8) 01/23/20 05:45 Hgb 10.2 g/dL (14.0-18.0) L 01/23/20 05:45 Hct 32.9 % (42.0-52.0) L 01/23/20 05:45 MCV 76.8 fL (78.0-98.0) L 01/23/20 05:45 Plt Count 213 thou/uL (130-400) 01/23/20 05:45 Neutrophils % 64.5 % (42.0-75.0) 01/23/20 05:45 Sodium 142 mmol/L (136-145) 01/23/20 05:45 Potassium 3.7 mmol/L (3.5-5.1) 01/23/20 05:45 Chloride 109 mmol/L (98-107) H 01/23/20 05:45 Carbon Dioxide 26 mmol/L (23-31) 01/23/20 05:45 BUN 23 mg/dL (8.4-25.7) 01/23/20 05:45 Creatinine 1.07 mg/dL (0.7-1.3) 01/23/20 05:45 Glucose 135 mg/dL (83-110) H 01/23/20 05:45 Calcium 8.5 mg/dL (7.8-10.44) 01/23/20 05:45 Total Bilirubin 0.4 mg/dL (0.2-1.2) 01/23/20 05:45 AST 17 U/L (5-34) 01/23/20 05:45 ALT 10 U/L (8-55) 01/23/20 05:45 Alkaline Phosphatase 71 U/L (40-110) 01/23/20 05:45 Troponin I 0.015 ng/mL (< 0.028) 01/23/20 05:45 Serum Total Protein 6.0 g/dL (5.8-8.1) 01/23/20 05:45 Albumin 3.4 g/dL (3.4-4.8) 01/23/20 05:45 Urine Ketones Negative mg/dL (Negative) 01/23/20 06:00 Urine Blood Negative (Negative) 01/23/20 06:00 Urine Nitrite Negative (Negative) 01/23/20 06:00 Ur Leukocyte Esterase Negative Candice/uL (Negative) 01/23/20 06:00 Hospitalist H&P A/P - Plan Plan: Dizziness 84-year-old male with past medical history of hypertension, iron deficiency anemia, BPH, GERD presents with acute onset of nausea dizziness and feeling as though the room is spinning around him. CT brain negative, CTA did not show any areas of significant stenosis. Patient with horizontal nystagmus on exam. Symptoms likely due to peripheral vertigo, but given patient's age, significant history of hypertension, cardiac murmur, family history will obtain MRI to rule out stroke. Plan MRI brain Meclizine Zofran q4 neurochecks Hypertension History of hypertension on lisinopril, hydralazine, nitro, amlodipine. Will continue patient's home amlodipine and hydralazine and monitor his blood pressures closely. BPH Continue home Flomax GERD On home Dexilant, will substitute with pantoprazole as this is nonformulary. DVT prophylaxis: SCDs Full code: Patient has named his children Grazyna Caban Connie as his medical decision makers
[2020-01-23] MEDS ORDERED: Acetaminophen 325 MG TAB PO PRN (08:17)
[2020-01-23] MEDS ORDERED: Ondansetron ODT 4 MG TAB PO PRN (08:17)
[2020-01-23] MEDS ORDERED: Ondansetron PF 4 MG/2 ML Vial IVP PRN (08:17)
[2020-01-23] MEDS ORDERED: Meclizine HCl 25 MG TAB PO PRN (08:20)
--- NOTE | 2020-01-23 10:52 | MRI ---
MRI BRAIN WITHOUT CONTRAST: Date: 01/23/2020 HISTORY: Dizziness. Vomiting. Nausea. Lightheadedness. FINDINGS: Correlation is made with earlier CT scan from same date. There are changes of mild cortical atrophy and mild chronic small vessel ischemic disease. No restric celina diffusion is seen. The ventricular size is appropriate and the basilar cisterns are patent. There is mucosal disease in the paranasal sinuses. IMPRESSION: No evidence of acute intracranial process. POS: [facility]
[2020-01-23 12:22] LABS: Troponin I Less than 0.010 ng/mL (< 0.028)
[2020-01-23 16:15] LABS: SARS-CoV-2 MS2 Positive; SARS-CoV-2 N Gene Negative; SARS-CoV-2 S Gene Negative; SARS-CoV-2 by NAA Not Detected (NotDetected); SARS-CoV-2 orf1ab Negative
--- NOTE | 2020-01-25 10:26 | DIS ---
DATE OF ADMISSION: 01/23/2020 DATE OF DISCHARGE: 01/23/2020 DISCHARGE DIAGNOSIS: Benign peripheral positional vertigo. DISCHARGE DISPOSITION: To home. SECONDARY DISCHARGE DIAGNOSES: Include: 1. Hypertension. 2. Iron-deficiency anemia. 3. Benign prostatic hypertrophy. 4. Gastroesophageal reflux disease. DISCHARGE MEDICATIONS: No new medications. The patient may continue all home medications, includin. Lisinopril. 2. Dexilant. 3. Hydralazine. 4. Imdur. 5. Amlodipine. 6. Flomax. HOSPITAL COURSE: Mr. Figueroa is an 84-year-old male with past medical history of hypertension, iron-deficiency anemia, BPH, GERD, and spinal stenosis, who presented for acute onset of nausea and dizziness. The patient presented approximately 4:30 a.m. This morning, he woke from sleep with extreme dizziness, nausea, and dry heaving. The patient also felt the room was spinning around him. He denies any chest pain, shortness of breath, or palpitations at that time. He denies any weakness, numbness, parasthesias, or changes in vision. The patient reports that his dizziness is worse with movement and worse with changes in position. He denied any history of stroke or heart attacks. No history of prior vertigo. In the emergency room, EKG reveals no ischemic changes. Initial troponin 0.015. BUN/CR 23/1.07, sodium 142, potassium 3.7. H and h 10.2/32.9, WBC 5.8. CT brain showed no acute abnormalities. CT angio showed no areas of major stenosis. The patient received 500 mL of normal saline, 25 mg of meclizine, 5 mg of diazepam, and 4 mg of Zofran with significant improvement in his symptoms. Given the patient's age, we pursued MRI of brain which was negative. The patient's symptoms have completely resolved. His vital signs are stable, and the patient was determined to be safe for discharge back to home with follow up with his primary care provider in 1 week. IMAGING: Brain CT showed no evidence of acute intracranial abnormalities. CT angiogram showed mild atherosclerotic disease in the left cervical internal carotid artery without evidence of hemodynamically significant stenosis and no significant intracranial vascular abnormalities. Brain MRI showed changes of mild cortical atrophy and mild chronic small vessel disease, ventricular size appropriate and basilar cisterns patent. There was no evidence of acute intracranial process. VITAL SIGNS: On the day of discharge were blood pressure 122/88, pulse 89, respirations 18, and O2 sat is 99% on room air. PHYSICAL EXAM: NAD, AOx4 RRR, No murmurs, rubs, or gallops. CTAB Abdomen soft, non-tender with normoactive bowel sounds Cranial nerves intact. No focal deficits. Normal gait. No pronator drift. Equal strength bilaterally, normal sensation to touch DISCHARGE FOLLOWUP: The patient will need to follow up with his primary care provider in 1 week. The patient instructed to return to the emergency department if he develops any new of worsening symptoms. Case discussed with attending physician, Dr. Mota who is in agreement with assessment ant plan. Job ID: [id number] MTDD
== END 2020-01-23 14:15 | disposition home or self-care (01) ==
LOC: ERS 05:39 → ERHOLD 07:27
PROVIDERS: ADMIT Student in an Organized Health Care Education/Training Program; ATTEND Student in an Organized Health Care Education/Training Program
DX: H81.399 Other peripheral vertigo, unspecified ear (principal); I10 Essential (primary) hypertension; D50.9 Iron deficiency anemia, unspecified; N40.0 Benign prostatic hyperplasia without lower urinary tract symptoms; K21.9 Gastro-esophageal reflux disease without esophagitis; Z79.82 Long term (current) use of aspirin; Z79.899 Other long term (current) drug therapy; Z88.5 Allergy status to narcotic agent; Z88.8 Allergy status to other drugs, medicaments and biological substances; Z20.828 Contact with and (suspected) exposure to other viral communicable diseases
CPT/HCPCS: 70450; 70496; 70498; 70551; 80053; 81003; 84484 ×2; 85025; 93005; 96374; 99285; G0378; U0003; 36415; 87635; J2405

== ENCOUNTER 2020-02-17 06:08 | Emergency (ER) | payer MEDICARE ==
[2020-02-17] MEDS ORDERED: Tamsulosin HCl 0.4 MG CAP PO SCH (06:45)
[2020-02-17 07:24] LABS: Bilirubin Negative (Negative); Blood, Urine Negative (Negative); Clarity Clear (Clear); Glucose, Urine (Dipstick) Normal (Negative); Ketone, Urine Negative (Negative); Leukocyte Negative Leu/uL (Negative); Nitrite Negative (Negative); Protein, Urine (Dipstick) Negative (Neg-Trace); Specific Gravity, Urine 1.012 (1.002-1.036); Urobilinogen Normal mg/dL (Less than 2); pH, Urine 7.5 (5.0-9.0)
== END 2020-02-17 07:36 | disposition home or self-care (01) ==
LOC: ERS 06:08
DX: N40.0 Benign prostatic hyperplasia without lower urinary tract symptoms (principal); D64.9 Anemia, unspecified; I10 Essential (primary) hypertension; Z79.899 Other long term (current) drug therapy
CPT/HCPCS: 81003; 87086; 99283

== ENCOUNTER 2020-03-13 14:01 | Emergency (ER) | payer MEDICARE ==
[2020-03-13] MEDS ORDERED: Ondansetron PF 4 MG/2 ML Vial ONE (14:37)
[2020-03-13] MEDS ORDERED: Meclizine HCl 25 MG TAB ONE (14:37)
--- NOTE | 2020-03-13 15:10 | RAD ---
CHEST ONE VIEW: 03/13/20 HISTORY: Dizziness and nausea. COMPARISON: Radiograph 2019. FINDINGS: Lungs are clear. No pneumothorax. No effusion. Heart size and pulmonary arteries are mildly enlarged. No acute osseous abnormality. IMPRESSION: No acute intrathoracic abnormality. POS: [facility]
[2020-03-13 15:13] LABS: #Eosinphils 0.1 thou/uL (0.0-0.7); #Lymphocytes 0.9 thou/uL (1.20-3.40); #Monocytes 0.4 thou/uL (0.11-0.59); #Neutrophils 4.3 thou/uL (1.40-6.50); %Basophils 0.1 % (0.0-1.0); %Eosinophils 1.8 % (0.0-10.0); %Monocytes 7.4 % (0.0-10.0); %Neutrophils 74.7 % (42.0-75.0); Hemoglobin 9.8 g/dL (14.0-18.0); Mean Corpuscular HGB CONC 29.6 g/dL (32.0-36.0); Mean Corpuscular Hemoglobin 22.9 pg (27.0-31.0); Mean Corpuscular Volume 77.4 fL (78.0-98.0); Mean Platelet Volume 8.9 fL (7.4-10.4); Platelet Count 218 thou/uL (130-400); RBC Distribution Width 14.8 % (11.5-14.5); Red Blood Cell (RBC) Count 4.26 mill/uL (4.70-6.10); White Blood Cell (WBC) Count 5.7 thou/uL (4.8-10.8)
--- NOTE | 2020-03-13 15:13 | CT ---
CT BRAIN WITHOUT CONTRAST: 03/13/20 HISTORY: Dizziness, nausea, vertigo. COMPARISON: 01/23/20. FINDINGS: No evidence of acute infarct, hemorrhage, midline shift or abnormal extra-axial fluid collections are seen. The ventricular size is appropriate and the basilar cisterns patent. The bony calvarium is int act. The visualized paranasal sinuses and mastoid air cells are well aerated. IMPRESSION: Stable exam. No CT evidence of acute intracranial process. POS: [facility]
[2020-03-13 15:29] LABS: ALT (SGPT) 10 U/L (8-55); AST (SGOT) 15 U/L (5-34); Albumin 3.5 g/dL (3.4-4.8); Alkaline Phosphatase 77 U/L (40-110); Anion Gap 11 mmol/L (10-20); BUN (Urea Nitrogen) 20 mg/dL (8.4-25.7); Bilirubin, Total 0.2 mg/dL (0.2-1.2); Calc. Creatinine Clearance 0 mL/min (70-130); Calcium 8.1 mg/dL (7.8-10.44); Carbon Dioxide 27 mmol/L (23-31); Chloride 107 mmol/L (98-107); Globulin 2.3 g/dL (2.4-3.5); Glucose 119 mg/dL (83-110); Potassium 4.1 mmol/L (3.5-5.1); Protein, Total 5.8 g/dL (5.8-8.1); Sodium 141 mmol/L (136-145)
[2020-03-13 15:30] LABS: Hypochromia SLIGHT = 6-15 cells (100X) (0-5/hpf); MDiff Complete? YES; Microcytosis SLIGHT = 6-15 cells (100X) (0-5/hpf); Ovalocytes SLIGHT = 2-5 cells (100X) (0-1/hpf); Platelet Morphology Comment Appears Adequate; Polychromasia SLIGHT = 2-3 cells (100X) (0-2/hpf)
[2020-03-13 15:43] LABS: Bilirubin Negative (Negative); Blood, Urine Negative (Negative); Clarity Clear (Clear); Glucose, Urine (Dipstick) Normal (Negative); Ketone, Urine Negative (Negative); Leukocyte Negative Leu/uL (Negative); Nitrite Negative (Negative); Protein, Urine (Dipstick) Negative (Neg-Trace); Urobilinogen Normal mg/dL (Less than 2)
--- NOTE | 2020-03-16 15:42 | EKG ---
Test Reason : DIZZINESS Blood Pressure : / mmHG Vent. Rate : 051 BPM Atrial Rate : 051 BPM P-R Int : 264 ms QRS Dur : 104 ms QT Int : 434 ms P-R-T Axes : 085 -17 -13 degrees QTc Int : 400 ms Sinus bradycardia with 1st degree A-V block Incomplete right bundle branch block Moderate voltage criteria for LVH, may be normal variant Cannot rule out Septal infarct , age undetermined Abnormal ECG No significant change from 01/23/2020 Confirmed by BO MEYERS DO ([id number]), news videotape editor DAVY SHUKLA ([id number]) on 03/16/2020 3:41:45 PM Referred By: LUIGI Confirmed By:BO MEYERS DO
== END 2020-03-13 16:55 | disposition home or self-care (01) ==
LOC: ERS 14:01
DX: R42 Dizziness and giddiness (principal); D64.9 Anemia, unspecified; I10 Essential (primary) hypertension; Z79.899 Other long term (current) drug therapy
CPT/HCPCS: 36415; 70450; 71045; 80053; 81003; 83735; 84484; 85025; 87086; 93005; 96374; J2405

== ENCOUNTER 2020-05-10 21:57 | Emergency (ER) | payer MEDICARE ==
[2020-05-10] MEDS ORDERED: cefTRIAXone\\ROCEPHIN 1 GM VIAL ONE (22:44)
[2020-05-10 22:56] LABS: Hemoglobin 9.2 g/dL (14.0-18.0); Mean Corpuscular HGB CONC 30.3 g/dL (32.0-36.0); Mean Corpuscular Hemoglobin 22.7 pg (27.0-31.0); Mean Platelet Volume 9.2 fL (7.4-10.4); Platelet Count 221 thou/uL (130-400); RBC Distribution Width 14.8 % (11.5-14.5); Red Blood Cell (RBC) Count 4.04 mill/uL (4.70-6.10); White Blood Cell (WBC) Count 5.9 thou/uL (4.8-10.8)
[2020-05-10 23:12] LABS: #Eosinphils 0.2 thou/uL (0.0-0.7); #Lymphocytes 1.1 thou/uL (1.20-3.40); #Monocytes 0.6 thou/uL (0.11-0.59); %Basophils 0.7 % (0.0-1.0); %Eosinophils 4.1 % (0.0-10.0); %Lymphocytes 17.9 % (21.0-51.0); %Monocytes 10.6 % (0.0-10.0); %Neutrophils 66.7 % (42.0-75.0); Hypochromia SLIGHT = 6-15 cells (100X) (0-5/hpf); MDiff Complete? YES; Microcytosis SLIGHT = 6-15 cells (100X) (0-5/hpf)
[2020-05-10 23:34] LABS: ALT (SGPT) 10 U/L (8-55); AST (SGOT) 18 U/L (5-34); Albumin 3.4 g/dL (3.4-4.8); Alkaline Phosphatase 77 U/L (40-110); Anion Gap 10 mmol/L (10-20); BUN (Urea Nitrogen) 21 mg/dL (8.4-25.7); Bilirubin, Total 0.2 mg/dL (0.2-1.2); Calc. Creatinine Clearance 0 mL/min (70-130); Calcium 8.4 mg/dL (7.8-10.44); Carbon Dioxide 29 mmol/L (23-31); Chloride 108 mmol/L (98-107); Globulin 2.6 g/dL (2.4-3.5); Glucose 106 mg/dL (83-110); Potassium 4.2 mmol/L (3.5-5.1); Sodium 143 mmol/L (136-145)
[2020-05-10 23:46] LABS: SARS-CoV-2 NAA Rapid Test Not Detected (NotDetected)
[2020-05-11] MEDS ORDERED: Iopamidol-370 76% 500 ML 1 ML ONE (11:43)
== END 2020-05-11 00:12 | disposition home or self-care (01) ==
LOC: ERS 21:57
DX: L03.116 Cellulitis of left lower limb (principal); R05 Cough; R50.9 Fever, unspecified; R06.02 Shortness of breath; I11.0 Hypertensive heart disease with heart failure; I50.9 Heart failure, unspecified; E78.5 Hyperlipidemia, unspecified; Z86.16 Personal history of COVID-19; Z20.822 Contact with and (suspected) exposure to COVID-19; D64.9 Anemia, unspecified; Z79.899 Other long term (current) drug therapy
CPT/HCPCS: 0240U; 71045; 71275; 80053; 83880; 84484; 85025; 85379; 85652; 86140; 93005; 96374; 99284; 36415; J0696; Q9967

== ENCOUNTER 2020-05-22 13:56 | Outpatient (CLI) | payer MEDICARE ==
--- NOTE | 2020-05-22 14:29 | ULT ---
EXAM: Left lower extremity venous Doppler US HISTORY: left lower extremity cellulitis, edema and pain FINDINGS: Grayscale, color-flow, Doppler evaluation, spectral analysis of the left lower extremity venous struc tures is performed with 2-D imaging. The left common femoral, superficial femoral, popliteal, posterior tibial, proximal greater saphenous and profunda femoral veins are imaged. There is normal luminal compressibility, flow, and augmentation the visualized deep venous structures of the left lower extremity. IMPRESSION: No evidence of a deep vein thrombosis in the left lower extremity.
--- NOTE | 2020-05-22 15:35 | ULT ---
Arterial duplex sonogram left lower extremity HISTORY: Vascular disease. Cellulitis. Leg pain. FINDINGS: Good color and spectral Doppler flow with triphasic waveform at the left common femoral, fe moral, popliteal, posterior tibial, and dorsalis pedis arteries. Biphasic waveform at the anterior tibial and deep femoral arteries. No abnormally elevated peak systolic velocities. IMPRESSION : Good arterial flow throughout the left lower extremity. No evidence of significant stenosis.
== END 2020-05-22 13:57 | disposition home or self-care (01) ==
LOC: ULT 13:56
PROVIDERS: ATTEND Nurse Practitioner Family
DX: M79.89 Other specified soft tissue disorders (principal); L03.90 Cellulitis, unspecified; M79.606 Pain in leg, unspecified; R60.0 Localized edema
CPT/HCPCS: 93923

== ENCOUNTER 2020-07-27 22:35 | Emergency (ER) | payer MEDICARE | END 2020-07-27 23:17 | disposition left against medical advice (07) | LOC: ERS 22:35 | DX: Z53.21 Procedure and treatment not carried out due to patient leaving prior to being seen by health care provider (principal) ==

== ENCOUNTER 2020-07-27 23:50 | Emergency (ER) | payer MEDICARE ==
[2020-07-28] MEDS ORDERED: Ondansetron PF 4 MG/2 ML Vial ONE (00:25)
[2020-07-28 00:38] LABS: #Lymphocytes 0.7 thou/uL (1.20-3.40); #Monocytes 0.3 thou/uL (0.11-0.59); #Neutrophils 6.7 thou/uL (1.40-6.50); %Basophils 0.4 % (0.0-1.0); %Eosinophils 0.5 % (0.0-10.0); %Lymphocytes 8.7 % (21.0-51.0); %Monocytes 3.9 % (0.0-10.0); %Neutrophils 86.6 % (42.0-75.0); Mean Corpuscular HGB CONC 30.1 g/dL (32.0-36.0); Mean Corpuscular Hemoglobin 22.2 pg (27.0-31.0); Mean Corpuscular Volume 73.8 fL (78.0-98.0); Mean Platelet Volume 10.1 fL (7.4-10.4); Platelet Count 216 thou/uL (130-400); RBC Distribution Width 15.9 % (11.5-14.5); Red Blood Cell (RBC) Count 4.49 mill/uL (4.70-6.10); White Blood Cell (WBC) Count 7.8 thou/uL (4.8-10.8)
[2020-07-28 00:49] LABS: ALT (SGPT) 15 U/L (8-55); AST (SGOT) 25 U/L (5-34); Albumin 3.5 g/dL (3.4-4.8); Alkaline Phosphatase 73 U/L (40-110); Anion Gap 10 mmol/L (10-20); BUN (Urea Nitrogen) 25 mg/dL (8.4-25.7); Bilirubin, Total 0.2 mg/dL (0.2-1.2); Calc. Creatinine Clearance 0 mL/min (70-130); Calcium 8.8 mg/dL (7.8-10.44); Carbon Dioxide 27 mmol/L (23-31); Chloride 109 mmol/L (98-107); Globulin 2.9 g/dL (2.4-3.5); Glucose 120 mg/dL (83-110); Protein, Total 6.4 g/dL (5.8-8.1); Sodium 142 mmol/L (136-145)
[2020-07-28 01:35] LABS: Bilirubin Negative (Negative); Blood, Urine Negative (Negative); Clarity Clear (Clear); Glucose, Urine (Dipstick) Normal (Negative); Ketone, Urine Negative (Negative); Leukocyte Negative Leu/uL (Negative); Nitrite Negative (Negative); Protein, Urine (Dipstick) Negative (Neg-Trace); Specific Gravity, Urine 1.019 (1.002-1.036); Urobilinogen Normal mg/dL (Less than 2); pH, Urine 7.5 (5.0-9.0)
== END 2020-07-28 01:41 | disposition home or self-care (01) ==
LOC: ERS 23:50
DX: R19.7 Diarrhea, unspecified (principal); R50.9 Fever, unspecified; R10.9 Unspecified abdominal pain; R11.0 Nausea; I10 Essential (primary) hypertension
CPT/HCPCS: 36415; 71045; 80053; 81003; 84484; 85025; 93005; 96374; J2405

== ENCOUNTER 2020-08-07 13:54 | Emergency (ER) | payer MEDICARE ==
[2020-08-07 15:09] LABS: #Eosinphils 0.1 thou/uL (0.0-0.7); #Lymphocytes 0.6 thou/uL (1.20-3.40); #Monocytes 0.6 thou/uL (0.11-0.59); #Neutrophils 8.8 thou/uL (1.40-6.50); %Basophils 0.2 % (0.0-1.0); %Eosinophils 1.3 % (0.0-10.0); %Lymphocytes 5.4 % (21.0-51.0); %Monocytes 5.9 % (0.0-10.0); %Neutrophils 87.3 % (42.0-75.0); Hemoglobin 9.8 g/dL (14.0-18.0); Mean Corpuscular HGB CONC 29.7 g/dL (32.0-36.0); Mean Corpuscular Hemoglobin 22.2 pg (27.0-31.0); Mean Corpuscular Volume 74.9 fL (78.0-98.0); Mean Platelet Volume 8.8 fL (7.4-10.4); Platelet Count 269 thou/uL (130-400); RBC Distribution Width 16.1 % (11.5-14.5); Red Blood Cell (RBC) Count 4.41 mill/uL (4.70-6.10); White Blood Cell (WBC) Count 10.1 thou/uL (4.8-10.8)
[2020-08-07 15:19] LABS: Bacteria/HPF None Seen HPF (None Seen); Bilirubin Negative (Negative); Blood, Urine Negative (Negative); Clarity Clear (Clear); Glucose, Urine (Dipstick) Normal (Negative); Ketone, Urine Negative (Negative); Leukocyte 75 Leu/uL (Negative); Nitrite Negative (Negative); Protein, Urine (Dipstick) 10 mg/dL (Neg-Trace); RBC/HPF 0-3 HPF (0-3); Squamous Epithelial None Seen HPF (0-3); Urobilinogen Normal mg/dL (Less than 2); WBC/HPF 0-3 HPF (0-3); pH, Urine 6.5 (5.0-9.0)
[2020-08-07 15:29] LABS: Anisocytosis SLIGHT = 6-15 cells (100X) (0-5/hpf); Hypochromia SLIGHT = 6-15 cells (100X) (0-5/hpf); MDiff Complete? YES; Microcytosis SLIGHT = 6-15 cells (100X) (0-5/hpf); Platelet Morphology Comment Appears Adequate; Polychromasia SLIGHT = 2-3 cells (100X) (0-2/hpf)
[2020-08-07 15:33] LABS: ALT (SGPT) 8 U/L (8-55); AST (SGOT) 16 U/L (5-34); Albumin 3.1 g/dL (3.4-4.8); Alkaline Phosphatase 69 U/L (40-110); Anion Gap 12 mmol/L (10-20); BUN (Urea Nitrogen) 15 mg/dL (8.4-25.7); Bilirubin, Total 0.4 mg/dL (0.2-1.2); Calc. Creatinine Clearance 0 mL/min (70-130); Calcium 8.6 mg/dL (7.8-10.44); Carbon Dioxide 26 mmol/L (23-31); Chloride 104 mmol/L (98-107); Globulin 2.7 g/dL (2.4-3.5); Glucose 100 mg/dL (83-110); Lipase 23 U/L (8-78); Potassium 3.8 mmol/L (3.5-5.1); Protein, Total 5.8 g/dL (5.8-8.1); Sodium 138 mmol/L (136-145)
== END 2020-08-07 17:37 | disposition home or self-care (01) ==
LOC: ERS 13:54
DX: A09 Infectious gastroenteritis and colitis, unspecified (principal); I10 Essential (primary) hypertension; Z79.899 Other long term (current) drug therapy
CPT/HCPCS: 74177; 80053; 81003; 81015; 83690; 85025; 93005

== ENCOUNTER 2021-01-27 17:14 | Emergency (ER) | payer MEDICARE ==
[2021-01-27 18:01] LABS: Hemoglobin 9.5 g/dL (14.0-18.0); Mean Corpuscular Hemoglobin 22.9 pg (27.0-31.0); Mean Corpuscular Volume 76.6 fL (78.0-98.0); Red Blood Cell (RBC) Count 4.15 mill/uL (4.70-6.10); White Blood Cell (WBC) Count 7.5 thou/uL (4.8-10.8)
[2021-01-27 18:19] LABS: #Basophils 0.1 thou/uL (0.0-0.2); #Eosinphils 0.1 thou/uL (0.0-0.7); #Lymphocytes 0.7 thou/uL (1.20-3.40); #Monocytes 0.7 thou/uL (0.11-0.59); %Basophils 0.9 % (0.0-1.0); %Eosinophils 1.8 % (0.0-10.0); %Lymphocytes 9.3 % (21.0-51.0); %Monocytes 8.6 % (0.0-10.0); %Neutrophils 79.4 % (42.0-75.0); Mean Corpuscular HGB CONC 29.9 g/dL (32.0-36.0); Mean Platelet Volume 9.3 fL (7.4-10.4); Platelet Count 213 thou/uL (130-400); RBC Distribution Width 15.7 % (11.5-14.5)
[2021-01-27 18:32] LABS: ALT (SGPT) 12 U/L (8-55); AST (SGOT) 20 U/L (5-34); Albumin 3.3 g/dL (3.4-4.8); Alkaline Phosphatase 82 U/L (40-110); Anion Gap 13 mmol/L (10-20); BUN (Urea Nitrogen) 17 mg/dL (8.4-25.7); Bilirubin, Total 0.3 mg/dL (0.2-1.2); Calc. Creatinine Clearance 0 mL/min (70-130); Calcium 8.7 mg/dL (7.8-10.44); Carbon Dioxide 23 mmol/L (23-31); Chloride 109 mmol/L (98-107); Globulin 2.9 g/dL (2.4-3.5); Glucose 104 mg/dL (83-110); Potassium 4.7 mmol/L (3.5-5.1); Protein, Total 6.2 g/dL (5.8-8.1); Sodium 140 mmol/L (136-145)
[2021-01-27 18:42] LABS: Anisocytosis SLIGHT = 6-15 cells (100X) (0-5/hpf); Hypochromia SLIGHT = 6-15 cells (100X) (0-5/hpf); MDiff Complete? YES; Microcytosis SLIGHT = 6-15 cells (100X) (0-5/hpf); Ovalocytes SLIGHT = 2-5 cells (100X) (0-1/hpf); Platelet Morphology Comment Appears Adequate; Polychromasia SLIGHT = 2-3 cells (100X) (0-2/hpf); Target Cells SLIGHT = 2-5 cells (100X) (0-1/hpf)
[2021-01-27 19:16] LABS: Bacteria/HPF None Seen HPF (None Seen); Bilirubin Negative (Negative); Blood, Urine Negative (Negative); Clarity Clear (Clear); Glucose, Urine (Dipstick) Normal (Negative); Ketone, Urine Negative (Negative); Leukocyte 500 Leu/uL (Negative); Nitrite Negative (Negative); Protein, Urine (Dipstick) 10 mg/dL (Neg-Trace); Squamous Epithelial None Seen HPF (0-3); Urobilinogen Normal mg/dL (Less than 2); WBC/HPF Greater than 50 HPF (0-3); pH, Urine 7.5 (5.0-9.0)
[2021-01-27] MEDS ORDERED: cefTRIAXone\\ROCEPHIN 1 GM VIAL ONE ×6 (22:07→22:10)
[2021-01-27] MEDS ORDERED: Acetaminophen 500 MG TAB ONE (22:07)
== END 2021-01-27 23:00 | disposition home or self-care (01) ==
LOC: ERS 17:14
DX: N39.0 Urinary tract infection, site not specified (principal); I10 Essential (primary) hypertension
CPT/HCPCS: 36415; 80053; 81003; 81015; 83605; 85025; 87040; 87086; 96365; J0696

== ENCOUNTER 2023-01-16 08:09 | Emergency (ER) | payer MEDICARE ==
[2023-01-16 08:42] LABS: #Eosinphils 0.1 thou/uL (0.0-0.7); #Monocytes 0.5 thou/uL (0.11-0.59); #Neutrophils 3.6 thou/uL (1.40-6.50); %Basophils 0.6 % (0.0-1.0); %Eosinophils 1.9 % (0.0-10.0); %Lymphocytes 18.2 % (21.0-51.0); %Monocytes 10.3 % (0.0-10.0); %Neutrophils 68.6 % (42.0-75.0); Hematocrit 41.7 % (42.0-52.0); Hemoglobin 13.2 g/dL (14.0-18.0); Mean Corpuscular HGB CONC 31.7 g/dL (32.0-36.0); Mean Corpuscular Hemoglobin 29.5 pg (27.0-31.0); Mean Corpuscular Volume 93.1 fl (78.0-98.0); Mean Platelet Volume 10.4 fL (7.4-10.4); Platelet Count 155 10x3/uL (130-400); RBC Distribution Width 14.2 % (11.5-14.5); Red Blood Cell (RBC) Count 4.48 mill/uL (4.70-6.10); White Blood Cell (WBC) Count 5.2 10x3/uL (4.8-10.8)
[2023-01-16 09:08] LABS: Troponin I 0.023 ng/mL (< 0.028)
[2023-01-16 09:11] LABS: ALT (SGPT) 31 U/L (8-55); AST (SGOT) 27 U/L (5-34); Albumin 4.2 g/dL (3.4-4.8); Alkaline Phosphatase 86 U/L (40-110); Anion Gap 11 mmol/L (10-20); BUN (Urea Nitrogen) 27 mg/dL (8.4-25.7); Bilirubin, Total 0.7 mg/dL (0.2-1.2); Calc. Creatinine Clearance 0 mL/min (70-130); Calcium 9.2 mg/dL (7.8-10.44); Carbon Dioxide 29 mmol/L (23-31); Chloride 107 mmol/L (98-107); Estimated GFR 59; Globulin 2.5 g/dL (2.4-3.5); Glucose 98 mg/dL (83-110); Magnesium 2.4 mg/dL (1.6-2.6); Potassium 3.6 mmol/L (3.5-5.1); Protein, Total 6.7 g/dL (5.8-8.1); Sodium 143 mmol/L (136-145)
== END 2023-01-16 09:34 | disposition left against medical advice (07) ==
LOC: ERS 08:09
DX: R07.9 Chest pain, unspecified (principal); I48.91 Unspecified atrial fibrillation
CPT/HCPCS: 36415; 71045; 80053; 83735; 83880; 84484; 85025

== ENCOUNTER 2023-01-16 11:19 | Inpatient (IN) | payer MEDICARE ==
[2023-01-16 12:36] LABS: Troponin I 0.028 ng/mL (< 0.028)
[2023-01-16] MEDS ORDERED: Acetaminophen 650 MG Suppository PR PRN (13:38)
[2023-01-16] MEDS ORDERED: Nitroglycerin 0.4 MG TAB (25 Tab Bottle) SL PRN (13:38)
[2023-01-16 15:40] LABS: Troponin I 0.036 ng/mL (< 0.028)
[2023-01-16 19:01] LABS: Troponin I 0.035 ng/mL (< 0.028)
[2023-01-16] MEDS: hydrALAZINE 25 MG TAB PO SCH (20:25)
[2023-01-16] MEDS: Ondansetron PF 4 MG/2 ML Vial IVP PRN (20:25)
[2023-01-16] MEDS: Tamsulosin HCl 0.4 MG CAP PO SCH (20:26)
[2023-01-16] MEDS: Latanoprost 0.005% Ophth Soln 2.5 ml Bottle EA EYE SCH (20:40)
[2023-01-16] MEDS ORDERED: Lidocaine 2% Viscous Solution 10 ML, Aluminum & Magnesium Hydroxide 30 ML SSW SCH (21:30)
[2023-01-17] MEDS: Ondansetron ODT 4 MG TAB PO PRN ×2 (02:10→23:22)
[2023-01-17 05:39] LABS: #Eosinphils 0.1 thou/uL (0.0-0.7); #Monocytes 0.7 thou/uL (0.11-0.59); #Neutrophils 4.3 thou/uL (1.40-6.50); %Basophils 0.5 % (0.0-1.0); %Eosinophils 1.7 % (0.0-10.0); %Lymphocytes 12.1 % (21.0-51.0); %Monocytes 11.8 % (0.0-10.0); %Neutrophils 73.7 % (42.0-75.0); Hemoglobin 13.2 g/dL (14.0-18.0); Mean Corpuscular HGB CONC 31.4 g/dL (32.0-36.0); Mean Corpuscular Hemoglobin 28.9 pg (27.0-31.0); Mean Corpuscular Volume 92.1 fl (78.0-98.0); Mean Platelet Volume 10.8 fL (7.4-10.4); Platelet Count 141 10x3/uL (130-400); RBC Distribution Width 14.2 % (11.5-14.5); Red Blood Cell (RBC) Count 4.56 mill/uL (4.70-6.10); White Blood Cell (WBC) Count 5.9 10x3/uL (4.8-10.8)
[2023-01-17 06:19] LABS: Anion Gap 14 mmol/L (10-20); BUN (Urea Nitrogen) 18 mg/dL (8.4-25.7); Calc. Creatinine Clearance 0 mL/min (70-130); Calcium 8.7 mg/dL (7.8-10.44); Carbon Dioxide 25 mmol/L (23-31); Cardiac Risk 2.8 (Less than 4.5); Chloride 108 mmol/L (98-107); Cholesterol 99 mg/dl (< 200 Desired); Estimated GFR 72; Glucose 94 mg/dL (83-110); HDL Cholesterol 35 mg/dL (>60 Neg Risk); LDL Cholesterol, Calculated 50 mg/dL; Potassium 3.8 mmol/L (3.5-5.1); Sodium 143 mmol/L (136-145); Triglycerides 72 mg/dL (Less than 150)
[2023-01-17] MEDS ORDERED: Communication Order-Pharmacy FS PRN (09:15)
[2023-01-17] MEDS ORDERED: hydrALAZINE 25 MG TAB PO SCH ×2 (09:30)
[2023-01-17] MEDS ORDERED: Amlodipine 5 MG TAB PO SCH (09:30)
[2023-01-17] MEDS: Aspirin Chewable 81 MG TAB PO SCH (11:12)
[2023-01-17] MEDS: Isosorbide Mononitrate 60 MG ER.TAB PO SCH (11:13)
[2023-01-17] MEDS: Dronedarone HCl 400 MG TAB PO SCH ×4 (11:15→18:37)
[2023-01-17] MEDS: hydrALAZINE 25 MG TAB PO SCH ×2 (11:17→20:22)
[2023-01-17 12:28] LABS: Hematocrit 43.6 % (42.0-52.0); Hemoglobin 13.7 g/dL (14.0-18.0); Platelet Count 147 10x3/uL (130-400)
[2023-01-17] MEDS: Tamsulosin HCl 0.4 MG CAP PO SCH (20:21)
[2023-01-17] MEDS: Latanoprost 0.005% Ophth Soln 2.5 ml Bottle EA EYE SCH (20:22)
[2023-01-17] MEDS: Polyethylene Glycol 3350 17 GM Packet PO SCH (20:22)
[2023-01-18] MEDS: Dronedarone HCl 400 MG TAB PO SCH (08:42)
[2023-01-18] MEDS: Aspirin Chewable 81 MG TAB PO SCH (08:43)
[2023-01-18] MEDS: hydrALAZINE 25 MG TAB PO SCH ×2 (08:43→20:25)
[2023-01-18] MEDS: Amlodipine 5 MG TAB PO SCH (08:44)
[2023-01-18] MEDS: Isosorbide Mononitrate 60 MG ER.TAB PO SCH (08:45)
[2023-01-18] MEDS: Acetaminophen 325 MG TAB PO PRN (12:31)
[2023-01-18] MEDS: Polyethylene Glycol 3350 17 GM Packet PO SCH ×2 (12:32→20:24)
[2023-01-18] MEDS ORDERED: ADENOSINE 60 MG/20 ML SDV ONE (15:06)
[2023-01-18] MEDS ORDERED: Simethicone Chewable 80 MG TAB PO PRN (17:12)
[2023-01-18] MEDS ORDERED: Sucralfate 1 GM TAB PO SCH ×2 (17:15→22:45)
[2023-01-18] MEDS: Tamsulosin HCl 0.4 MG CAP PO SCH (20:24)
[2023-01-18] MEDS: Latanoprost 0.005% Ophth Soln 2.5 ml Bottle EA EYE SCH (20:24)
[2023-01-19] MEDS: Ondansetron ODT 4 MG TAB PO PRN (00:58)
[2023-01-19 05:00] LABS: #Eosinphils 0.1 thou/uL (0.0-0.7); #Monocytes 0.5 thou/uL (0.11-0.59); #Neutrophils 4.1 thou/uL (1.40-6.50); %Basophils 0.8 % (0.0-1.0); %Eosinophils 1.3 % (0.0-10.0); %Lymphocytes 10.6 % (21.0-51.0); %Neutrophils 77.1 % (42.0-75.0); Hematocrit 40.8 % (42.0-52.0); Hemoglobin 12.8 g/dL (14.0-18.0); Mean Corpuscular HGB CONC 31.4 g/dL (32.0-36.0); Mean Corpuscular Volume 92.3 fl (78.0-98.0); Mean Platelet Volume 10.5 fL (7.4-10.4); Platelet Count 134 10x3/uL (130-400); Red Blood Cell (RBC) Count 4.42 mill/uL (4.70-6.10); White Blood Cell (WBC) Count 5.3 10x3/uL (4.8-10.8)
[2023-01-19 05:29] LABS: Anion Gap 10 mmol/L (10-20); BUN (Urea Nitrogen) 21 mg/dL (8.4-25.7); Calc. Creatinine Clearance 59 mL/min (70-130); Calcium 8.8 mg/dL (7.8-10.44); Carbon Dioxide 29 mmol/L (23-31); Chloride 108 mmol/L (98-107); Estimated GFR 59; Glucose 98 mg/dL (83-110); Potassium 3.8 mmol/L (3.5-5.1); Sodium 143 mmol/L (136-145)
[2023-01-19] MEDS: hydrALAZINE 25 MG TAB PO SCH ×2 (08:02→20:37)
[2023-01-19] MEDS: Aspirin Chewable 81 MG TAB PO SCH (08:04)
[2023-01-19] MEDS: Amlodipine 5 MG TAB PO SCH (08:04)
[2023-01-19] MEDS: Ondansetron PF 4 MG/2 ML Vial IVP PRN ×2 (08:05→22:18)
[2023-01-19] MEDS: Isosorbide Mononitrate 60 MG ER.TAB PO SCH (08:05)
[2023-01-19] MEDS ORDERED: FLU VACC QS2023(65UP)/MF59C/PF 60 MCG/0.5 ML SYRINGE IM ONE (09:00)
[2023-01-19] MEDS ORDERED: Iopamidol 370 76% 100 ML VIAL ONE (09:20)
[2023-01-19] MEDS ORDERED: Vancomycin (BATCH) 1.5 GM in Premix 1 BAG IVPB SCH (10:00)
[2023-01-19] MEDS ORDERED: Polyethylene Glycol 3350 17 GM Packet PO SCH (12:00)
[2023-01-19] MEDS: Sucralfate 1 GM/10 ML UDCUP PO SCH (12:14)
[2023-01-19] MEDS: Acetaminophen 325 MG TAB PO PRN ×2 (12:14→20:37)
[2023-01-19] MEDS ORDERED: Gentamicin 80 MG/2 ML VIAL ONE (13:02)
[2023-01-19] MEDS ORDERED: CEFAZOLIN 2 GM VIAL ONE (13:02)
[2023-01-19] MEDS ORDERED: Lidocaine 1% (PF) 30 ML VIAL ONE (13:03)
[2023-01-19] MEDS ORDERED: fentaNYL 50 mcg/mL 1 mL Vial ONE ×4 (15:00→18:47)
[2023-01-19] MEDS ORDERED: Propofol 500 MG/50 ML VIAL ONE (15:00)
[2023-01-19] MEDS ORDERED: KETAMINE 100 MG/ML (5ML VIAL) ONE (16:34)
[2023-01-19] MEDS ORDERED: PROPOFOL 200 MG/20 ML VIAL ONE (17:04)
[2023-01-19] MEDS ORDERED: ePHEDrine Sulfate 50 MG/10 ML VIAL ONE (17:04)
[2023-01-19] MEDS ORDERED: Glycopyrrolate 0.2 MG/ML 5 ML SYRINGE ONE (17:04)
[2023-01-19] MEDS ORDERED: Sevoflurane 250 ML INH ANEST BOTTLE ONE (17:10)
[2023-01-19] MEDS: Polyethylene Glycol 3350 17 GM Packet PO SCH (20:36)
[2023-01-19] MEDS: Tamsulosin HCl 0.4 MG CAP PO SCH (20:37)
[2023-01-19] MEDS: Latanoprost 0.005% Ophth Soln 2.5 ml Bottle EA EYE SCH (20:37)
[2023-01-19] MEDS ORDERED: Ketorolac Tromethamine 30 MG/ML VIAL IVP SCH (22:00)
[2023-01-20] MEDS ORDERED: Ibuprofen 200 MG TAB PO PRN (01:30)
[2023-01-20 05:30] LABS: #Eosinphils 0.1 thou/uL (0.0-0.7); #Monocytes 0.5 thou/uL (0.11-0.59); #Neutrophils 4.1 thou/uL (1.40-6.50); %Basophils 0.6 % (0.0-1.0); %Eosinophils 2.4 % (0.0-10.0); %Lymphocytes 10.6 % (21.0-51.0); %Monocytes 9.3 % (0.0-10.0); %Neutrophils 76.7 % (42.0-75.0); Hematocrit 40.1 % (42.0-52.0); Hemoglobin 12.6 g/dL (14.0-18.0); Mean Corpuscular HGB CONC 31.4 g/dL (32.0-36.0); Mean Corpuscular Hemoglobin 29.4 pg (27.0-31.0); Mean Corpuscular Volume 93.7 fl (78.0-98.0); Mean Platelet Volume 10.9 fL (7.4-10.4); Platelet Count 141 10x3/uL (130-400); RBC Distribution Width 14.2 % (11.5-14.5); Red Blood Cell (RBC) Count 4.28 mill/uL (4.70-6.10); White Blood Cell (WBC) Count 5.4 10x3/uL (4.8-10.8)
[2023-01-20 05:35] LABS: Anion Gap 13 mmol/L (10-20); BUN (Urea Nitrogen) 18 mg/dL (8.4-25.7); Calc. Creatinine Clearance 68 mL/min (70-130); Calcium 8.3 mg/dL (7.8-10.44); Carbon Dioxide 27 mmol/L (23-31); Chloride 108 mmol/L (98-107); Estimated GFR 71; Glucose 92 mg/dL (83-110); Potassium 3.7 mmol/L (3.5-5.1); Sodium 144 mmol/L (136-145)
[2023-01-20] MEDS: hydrALAZINE 25 MG TAB PO SCH (09:17)
[2023-01-20] MEDS: Aspirin Chewable 81 MG TAB PO SCH (09:17)
[2023-01-20] MEDS: Isosorbide Mononitrate 60 MG ER.TAB PO SCH (09:17)
[2023-01-20 11:32] VITALS: BP 123/58; TEMP 97.5
[2023-01-20] MEDS: Polyethylene Glycol 3350 17 GM Packet PO SCH (12:08)
[2023-01-20] MEDS: Sucralfate 1 GM/10 ML UDCUP PO SCH (12:08)
== END 2023-01-20 15:20 | disposition home or self-care (01) | DRG 243 ==
LOC: ERS 11:19 → ERHOLD 12:13 → 2SW 17:31 → OBSVTOIN 01-17 19:49
PROVIDERS: ADMIT Internal Medicine; ATTEND Family Medicine
PROC: 0JH606Z Insertion of Pacemaker, Dual Chamber into Chest Subcutaneous Tissue and Fascia, Open Approach (ICD-10-PCS; principal; 2023-01-19)
PROC: 02H63JZ Insertion of Pacemaker Lead into Right Atrium, Percutaneous Approach (ICD-10-PCS; 2023-01-19)
PROC: 02HK3JZ Insertion of Pacemaker Lead into Right Ventricle, Percutaneous Approach (ICD-10-PCS; 2023-01-19)
DX: I49.5 Sick sinus syndrome (principal); I48.19 Other persistent atrial fibrillation; I10 Essential (primary) hypertension; K21.9 Gastro-esophageal reflux disease without esophagitis; M45.9 Ankylosing spondylitis of unspecified sites in spine; I27.21 Secondary pulmonary arterial hypertension; I45.10 Unspecified right bundle-branch block; I08.3 Combined rheumatic disorders of mitral, aortic and tricuspid valves; H40.9 Unspecified glaucoma; N40.0 Benign prostatic hyperplasia without lower urinary tract symptoms; R10.9 Unspecified abdominal pain; Z88.5 Allergy status to narcotic agent; Z88.8 Allergy status to other drugs, medicaments and biological substances; Z79.899 Other long term (current) drug therapy; Z90.49 Acquired absence of other specified parts of digestive tract; Z98.890 Other specified postprocedural states
CPT/HCPCS: 33208; 36415; 71045; 78452; 80048; 80053; 80061; 83690; 83735; 83880; 84484; 85025; 93005; 93017; 93306; 94760; 96372; 96374; A9500; C1785; C1894; C1898; G0378; J0153; J1580; J1650; J1885; J2001; J2405; J2704; J3010; Q0162; Q9967

== ENCOUNTER 2024-02-15 03:44 | Emergency (ER) | payer MEDICARE ==
[2024-02-15 04:40] LABS: #Basophils 0.06 10x3/uL (0.0-0.2); %Eosinophils 4.8 % (0.0-10.0); %Monocytes 8.2 % (0.0-10.0); %Neutrophils 63.7 % (42.0-75.0); Hematocrit 39.7 % (42.0-52.0); Hemoglobin 12.4 g/dL (14.0-18.0); Mean Corpuscular HGB CONC 31.2 g/dL (32.0-36.0); Mean Corpuscular Hemoglobin 28.5 pg (27.0-31.0); Mean Corpuscular Volume 91.3 fL (78.0-98.0); Mean Platelet Volume 10.3 fL (7.4-10.4); Platelet Count 204 10x3/uL (130-400); RBC Distribution Width 14.1 % (11.5-14.5); Red Blood Cell (RBC) Count 4.35 mill/uL (4.70-6.10)
[2024-02-15 04:47] LABS: ALT (SGPT) 17 U/L (8-55); AST (SGOT) 25 U/L (5-34); Albumin 3.2 g/dL (3.4-4.8); Alkaline Phosphatase 80 U/L (40-110); Anion Gap 11 mmol/L (10-20); BUN (Urea Nitrogen) 32 mg/dL (8.4-25.7); Bilirubin, Total 0.5 mg/dL (0.2-1.2); Calc. Creatinine Clearance 0 mL/min (70-130); Calcium 8.9 mg/dL (7.8-10.44); Carbon Dioxide 26 mmol/L (23-31); Chloride 108 mmol/L (98-107); Estimated GFR 60; Globulin 3.2 g/dL (2.4-3.5); Glucose 103 mg/dL (83-110); Potassium 3.4 mmol/L (3.5-5.1); Protein, Total 6.4 g/dL (5.8-8.1); Sodium 142 mmol/L (136-145)
[2024-02-15 04:54] LABS: PTT 32.4 sec (22.9-36.1); Prothrombin Time 13.4 sec (12.0-14.7)
== END 2024-02-15 06:09 | disposition home or self-care (01) ==
LOC: ERS 03:44
DX: R19.5 Other fecal abnormalities (principal); I10 Essential (primary) hypertension; Z79.899 Other long term (current) drug therapy
CPT/HCPCS: 80053; 85025; 85610; 85730; 93005; 99285

== ENCOUNTER 2024-11-12 08:00 | Emergency (ER) | payer MEDICARE ==
[2024-11-12] MEDS ORDERED: Ketorolac Tromethamine 30 MG (1 mL) VIAL ONE (08:21)
[2024-11-12] MEDS ORDERED: Ondansetron PF 4 MG/2 ML Vial ONE (08:21)
[2024-11-12 08:26] LABS: #Basophils 0.04 10x3/uL (0.0-0.2); #Eosinophils 0.15 10x3/uL (0.0-0.7); #Monocytes 0.38 10x3/uL (0.11-0.59); #Neutrophils 3.72 10x3/uL (1.40-6.50); %Basophils 0.7 % (0.0-1.0); %Eosinophils 2.7 % (0.0-10.0); %Lymphocytes 21.4 % (21.0-51.0); %Monocytes 6.9 % (0.0-10.0); %Neutrophils 68.1 % (42.0-75.0); Hematocrit 46.4 % (42.0-52.0); Hemoglobin 14.6 g/dL (14.0-18.0); Mean Corpuscular Hemoglobin 28.2 pg (27.0-31.0); Mean Corpuscular Volume 89.7 fL (78.0-98.0); Platelet Count 169 10x3/uL (130-400); Red Blood Cell (RBC) Count 5.17 mill/uL (4.70-6.10); White Blood Cell (WBC) Count 5.47 10x3/uL (4.8-10.8)
[2024-11-12 08:42] LABS: ALT (SGPT) 20 U/L (Less than 45); AST (SGOT) 31 U/L (11-34); Albumin 3.6 g/dL (3.1-4.5); Alkaline Phosphatase 91 U/L (40-110); Anion Gap 14 mmol/L (10-20); BUN (Urea Nitrogen) 20 mg/dL (8.4-25.7); Bilirubin, Total 0.9 mg/dL (0.3-1.2); Calc. Creatinine Clearance 0 mL/min (70-130); Calcium 8.9 mg/dL (7.8-10.44); Carbon Dioxide 27 mmol/L (23-31); Chloride 107 mmol/L (98-107); Globulin 3.5 g/dL (2.4-3.5); Glucose 122 mg/dL (83-110); Lipase 17 U/L (8-78); Potassium 3.7 mmol/L (3.5-5.1); Sodium 144 mmol/L (136-145)
[2024-11-12 09:15] LABS: Bacteria/HPF None Seen HPF (None Seen); CAUTI Indications for Culture Pelvic or flank pain; Glucose, Urine (Dipstick) Normal (Negative); Leukocyte 500 Leu/uL (Negative); Protein, Urine (Dipstick) 30 mg/dL (Neg-Trace); RBC/HPF 21-50 HPF (0-3); Specific Gravity, Urine 1.018 (1.002-1.036); WBC/HPF Greater than 50 HPF (0-3)
[2024-11-12 09:17] LABS: Urine Culture Reflex Yes Yes
[2024-11-12] MEDS ORDERED: Cefepime 2 GM VIAL ONE (09:28)
[2024-11-12] MEDS ORDERED: WATER IVP SCH (11:00)
[2024-11-12] MEDS ORDERED: LIDOCAINE IVP SCH (11:00)
[2024-11-12] MEDS ORDERED: DEXTROSE 5% IVP SCH (11:00)
[2024-11-12] MEDS ORDERED: LIDOCAINE FS SCH (11:15)
[2024-11-12] MEDS ORDERED: WATER FS SCH (11:15)
[2024-11-12] MEDS ORDERED: DEXTROSE 5% FS SCH (11:15)
[2024-11-12] MEDS ORDERED: Iopamidol-370 76% 500 ML MDV (1 ML CHARGE) ONE (11:45)
== END 2024-11-12 11:55 | disposition home or self-care (01) ==
LOC: ERS 08:00
DX: N13.2 Hydronephrosis with renal and ureteral calculous obstruction (principal); N28.9 Disorder of kidney and ureter, unspecified; N40.1 Benign prostatic hyperplasia with lower urinary tract symptoms; M48.061 Spinal stenosis, lumbar region without neurogenic claudication; R82.81 Pyuria; I10 Essential (primary) hypertension; Z79.899 Other long term (current) drug therapy; Z95.0 Presence of cardiac pacemaker
CPT/HCPCS: 74177; 80053; 81001; 83690; 85025; 87077; 87086; 93005; 94760; J0692; J1885; J2003; J2405; J3010; J7070; 87186; 96365; 96367; 96375; Q9967